=== PATIENT | male | born 1995 | race Caucasian/White ===

== ENCOUNTER 2021-08-05 17:05 | Emergency (ER) | payer MEDICAID, SELFPAY ==
[2021-08-05 17:06] VITALS: BP 138/89; PULSE 79; RESP 16; TEMP 36; O2SAT 97; BMI 20.3
--- NOTE | 2021-08-05 17:59 | CM.ED ---
SOCIAL WORK Referral Source: Triage Nurse Reason for Consult: Substance Abuse-requesting detox Informed by nursing, no detox beds available for patient. Call facilitated to Treatment Navigator for patient. Patient to go to [facility] for detox. Staff talat. Richie Erickson MSW, [employer]
--- NOTE | 2021-08-05 18:48 | EDS_ITS ---
HPI History of Present Illness Chief Complaint: Substance Abuse Narrative Narrative: 25-year-old male with history of Xanax use due to anxiety presenting for detox. He states that he has been on this for very long time he states that he has been prescribed this. He states he normally takes it as scheduled. Recently he overdosed on Xanax and has court appointed detox from benzodiazepines ordered. He arrives to [place] [facility] for this. He is not having any symptoms of withdrawal currently. PFSH PFSH Allergy/AdvReac Type Severity Reaction Status Date / Time iodine Allergy Hives Verified 08/05/21 17:10 codeine AdvReac Vomiting Verified 08/05/21 17:10 ROS ROS ED Constitutional Constitutional ED: Denies chills, fever(s) or subjective Eyes Eyes: Denies blurry vision or diplopia ENT ENT ED: Denies rhinorrhea or sore throat Cardiovascular Cardiovascular: Denies chest pain or palpitations Respiratory/Chest Respiratory/Chest: Denies cough or dyspnea Gastrointestinal Gastrointestinal: Denies abdominal pain, nausea or vomiting Genitourinary Genitourinary ED: Denies dysuria or urinary frequency Musculoskeletal Musculoskeletal: Denies arthralgias or myalgias Integumentary Denies abscess or rash Neurologic Neurologic: Denies headache(s) or weakness Psychiatric Psychiatric: Reports anxiety; Denies suicidal ideation or suicidal thoughts EXAM Physical Exam Const Vital Signs: 08/05/21 17:06 Temperature 96.8 F L Temperature Source Temporal Pulse Rate 79 Respiratory Rate 16 Blood Pressure 138/89 H Blood Pressure Mean 105 Pulse Ox 97 Oxygen Delivery Method Room Air Positive well nourished General Appearance ED: NAD; Negative for pallor HEENT Reports moist mucous membranes atraumatic Eyes PERRL and EOMs intact bilaterally Chest Wall inspection of chest normal and palpation of chest normal Resp normal respiratory effort and clear to auscultation bilaterally Cardio regular rate and regular rhythm Neuro oriented x3 and CN's II-XII intact bilaterally Sensorium / Orientation: alert and oriented to person Psych mental status grossly normal and thought process normal Skin General Skin Exam: Negative for jaundice or pallor MDM MDM MDM Narrative Medical decision making narrative: Patient presenting with court ordered benzodiazepine detox. He was able to speak to his treatment navigator who alerted him that he should be going to [facility]. He was seen by social work and I did confirm this. He does not have any signs of withdrawal. His father will drive him to [facility]. He is discharged in stable condition. Impression: 1. Anxiety 2. History of benzodiazepine abuse Discharge Plan Triage Chief Complaint: Substance Abuse ED Provider: Aryan Gonzalez Dx/Rx/DC Orders Instructions: ED Benzodiazepine Withdrawal Primary Care Provider: Reid Patino,Out of Referrals: Reid Patino,Out of [Primary Care Provider] - Activity Restrictions/Additional Instructions: The treatment navigator states that you are to go to [facility] for court ordere d detox from benzodiazepines. I recommended that she go straight there from [place] ED. Disposition Disposition: Home, Self Care
[2021-08-05 19:05] VITALS: BP 126/72; PULSE 88; RESP 14; TEMP 36.7; O2SAT 96
== END 2021-08-05 19:10 | disposition home or self-care (01) ==
LOC: ED 19:08
PROVIDERS: Emergency Provider Student in an Organized Health Care Education/Training Program
DX: F41.9 Anxiety disorder, unspecified (principal); F13.10 Sedative, hypnotic or anxiolytic abuse, uncomplicated
CPT/HCPCS: 99281

== ENCOUNTER 2022-09-14 20:59 | Emergency (ER) | payer MEDICAID, SELFPAY ==
[2022-09-14 21:00] VITALS: BP 128/86; PULSE 81; RESP 16; TEMP 36.8; O2SAT 99; BMI 20.3
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
--- NOTE | 2022-09-14 21:50 | ED.RN ---
PT LEFT DEPARTMENT. UNWILLING TO STAY
== END 2022-09-14 21:53 | disposition left against medical advice (07) ==
LOC: ED 21:32
PROVIDERS: Emergency Provider Emergency Medicine; Visit Provider Emergency Medicine
DX: F11.20 Opioid dependence, uncomplicated (principal); F13.10 Sedative, hypnotic or anxiolytic abuse, uncomplicated; F17.210 Nicotine dependence, cigarettes, uncomplicated
CPT/HCPCS: 99282

== ENCOUNTER 2022-09-17 18:27 | Inpatient (IN) | payer MEDICAID, SELFPAY ==
[2022-09-17 18:28] VITALS: BP 124/91; PULSE 112; RESP 18; TEMP 36.7; O2SAT 99; BMI 20.3
[2022-09-17 19:52] LABS: Absolute Lymphocyte Count 1.52 X10^3/uL (0.83-4.51); Absolute Neutrophil Count 7.4 X10^3/uL (2.0-7.7); Basophil# 0.04 X10^3/uL; Basophil% 0.4 % (0-1); Eosinophil# 0.04 X10^3/uL; Eosinophils% 0.4 % (0-5); Hematocrit 52.9 % (40-54); Lymphocyte # 1.52 X10^3/ul (0.83-4.51); Lymphocyte % 15.5 % (19-41); Mean Corp Hgb Conc 34.2 g/dL (32-36); Mean Corpuscular Hgb 29.6 pg (27.0-32.0); Mean Corpuscular Volume 86.6 fL (80-94); Mean Platelet Vol. 9.9 fl (6.2-12.0); Monocyte# 0.73 X10^3/uL; Monocyte% 7.4 % (0-10); NRBC Flagged by Analyzer 0 % (0-5); Neutrophil # 7.44 X10^3/uL (2.7-7.7); Neutrophil % 75.8 % (47-70); Platelet Count 449 K/mm3 (150-450); RBC Distribution Width CV 12.4 % (11.6-14.6); RBC Distribution Width SD 39.1 fl (35.1-43.9); Red Blood Count 6.11 M/mm3 (4.6-6.2); White Blood Count 9.8 K/mm3 (4.4-11.0)
[2022-09-17 20:07] LABS: Hemoglobin 18.1 g/dL (13.0-16.5)
[2022-09-17 20:14] LABS: Amphetamine Urine VISTA NEGATIVE (<1000 ng/mL); Barbiturate Urine VISTA NEGATIVE (< 200 ng/mL); Benzodiazepine Urine VISTA NEGATIVE (< 200 ng/mL); Cocaine Urine VISTA NEGATIVE (< 300 ng/mL); Ecstacy Urine VISTA NEGATIVE (< 500 ng/mL); Methadone Urine VISTA NEGATIVE (< 300 ng/mL); PCP Urine VISTA NEGATIVE (< 25 ng/mL); THC Urine VISTA POSITIVE (< 50 ng/mL); Vista UDS pH Range 6
[2022-09-17 20:20] VITALS: BP 136/97; PULSE 94; RESP 18; O2SAT 97
[2022-09-17 20:21] LABS: Anion Gap 5 (5-15); BUN 13 mg/dL (7-18); BUN/Creat Ratio 11.3 RATIO (10-20); Calcium,Total 9.8 mg/dL (8.5-10.1); Chloride 103 mmol/L (98-107); Creatinine, Serum 1.15 mg/dL (0.70-1.30); EST Glomerular Filtration Rate 80 mL/min (>60); Est Glom Filt Rate - Afr Amer 97 mL/min (>60); Estimated Creatinine Clearance 92.03 ml/min; Glucose 108 mg/dL (74-106); Potassium 4.2 mmol/L (3.5-5.1); Sodium Level 135 mmol/L (136-145)
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
--- NOTE | 2022-09-17 21:43 | HP.PCM.HOS_ITS ---
HPI - General General Date of Admission: 09/17/22 Date of Service: 09/17/22 Chief Complaint: opioid detox HPI Narrative MALISSA COBIAN, is a 26 M with a PMH as outlined who presents via the ED on 09/17/2022 with a complaint of opioid withdrawal. He has been using IV fentanyl for about 2 years prior to admission; he says he snorts or smokes it and denies using it IV. He last used it the day before admission. He admitted to tremors and nausea as well as as some abdominal pain. He also takes ativan, and says it is prescribed by his PCP for his anxiety. He denied any fever, chills, cough, chest pain, palpitations, dizziness or any other symptoms. He had previously been in an outpatient opioid withdrawal program and had been on buprenorphine; he however says he had missed his last appointments and was now off buprenorphine. He said he took gabapentin for chronic leg pain. Review of systems was otherwise negative. Vitals in the ED were BP of 130/87, CT of 89 and RR of 20; temp was 97.4F and he was saturating at 100% on room air. CBC showed hb of 18.1, wbc of 9.8 and platelets of 449. Chemistry showed sodium of 135 but was otherwise WNL. Urine tox was positive for cannabinoids. He is being admitted to be managed for acute opioid withdrawal. [facility] Medical History Drug abuse Drug abuse Home Medications gabapentin 100 mg capsule 600 mg PO TID 09/17/22 [History Last Taken Unknown] lorazepam 1 mg tablet 1 mg PO TID 09/17/22 [History Last Taken Unknown] Allergy/AdvReac Type Severity Reaction Status Date / Time iodine Allergy Hives Verified 09/17/22 18:28 codeine AdvReac Vomiting Verified 09/17/22 18:28 Social History Smoking Status: Current every day smoker tobacco type: cigarettes ROS Review of Systems ROS Unobtainable: Denies due to encephalopathy Constitutional Constitutional: Reports fatigue and malaise; Denies anorexia, change in weight, chills, fever(s) or weakness Eyes Eyes: Denies change in vision ENT HEENT: Denies dysphagia, epistaxis, headache(s) or nasal congestion Cardiovascular Cardiovascular: Denies chest pain, dyspnea on exertion, edema, lightheadedness, orthopnea, palpitations, rapid heart rate or syncope Respiratory/Chest Respiratory/Chest: Denies cough, dyspnea, productive cough or shortness of breath at rest Gastrointestinal Gastrointestinal: Reports abdominal pain and nausea; Denies constipation or vomiting Genitourinary Genitourinary: Denies burning urination or dysuria Musculoskeletal Musculoskeletal: Denies arthralgias, back pain or joint pain Neurologic Neurologic: Denies confusion, dizziness, focal weakness, headache(s), seizures or syncope Psychiatric Psychiatric: Denies anxiety Endocrine Endocrinology: Denies change in body appearance Hematologic/Lymphatic Hematologic/Lymphatic: Denies anemia Vital Signs Vital Signs Vital Signs: 09/17/22 18:28 09/17/22 20:20 Temperature 98.1 F Temperature Source Temporal Pulse Rate 112 H 94 Respiratory Rate 18 18 Blood Pressure 124/91 H 136/97 H Blood Pressure Mean 102 110 Pulse Ox 99 97 Oxygen Delivery Method Room Air Room Air Weight Weight: 150 lb Body Mass Index (BMI) 20.3 Physical Exam Const alert and oriented x3 Constitutional Narrative: anxious, asking for pain meds; father was by his bedside General Appearance: cooperative HEENT normocephalic, head/scalp atraumatic, hearing grossly normal bilaterally and moist oral mucous membranes Mouth: oral and palatal mucosa normal Eyes PERRL, EOMs intact bilaterally and conjunctivae normal Neck no lymphadenopathy and supple Resp normal respiratory effort, no retractions, no use of accessory muscles and clear to auscultation bilaterally Cardio regular rate, regular rhythm, S1 normal heart sound, S2 normal heart sound and no murmurs GI normal to inspection, nondistended, normoactive bowel sounds, soft to palpation, non-tender and non-distended Extremity normal to inspection, full ROM and no clubbing, cyanosis or edema Neuro oriented x3, CN's II-XII intact bilaterally, moves all extremities and no focal motor deficits Sensorium / Orientation: awake and alert Motor Exam: strength 5/5 throughout Psych Psych Narrative: anxious looking Results Lab / Micro Data Result Diagrams: 09/17/22 19:25 09/17/22 19:25 Labs: Laboratory Results - last 24 hr 09/17/22 19:17: Urine Opiates Screen NEGATIVE, Urine Methadone Screen NEGATIVE, Ur Barbiturates Screen NEGATIVE, Ur Phencyclidine Scrn NEGATIVE, Ur Amphetamines Screen NEGATIVE, MDMA (Ecstasy) Screen NEGATIVE, U Benzodiazepines Scrn NEGATIVE, Urine Cocaine Screen NEGATIVE, U Cannabinoids Screen POSITIVE H, Ur Drug Screen Comment 09/17/22 19:25: WBC 9.8, RBC 6.11, Hgb 18.1 H*, Hct 52.9, MCV 86.6, MCH 29.6, MCHC 34.2, RDW Std Deviation 39.1, RDW Coeff of Luisito 12.4, Plt Count 449, MPV 9.9, Immature Gran % (Auto) 0.500, Neut % (Auto) 75.8 H, Lymph % (Auto) 15.5 L, Linn % (Auto) 7.4, Eos % (Auto) 0.4, Baso % (Auto) 0.4, Absolute Neuts (auto) 7.4, Absolute Lymphs (auto) 1.52, Nucleated RBC % 0 09/17/22 19:25: Sodium 135 L, Potassium 4.2, Chloride 103, Carbon Dioxide 27.0, Anion Gap 5, BUN 13, Creatinine 1.15, Estim Creat Clear Calc 92.03, Est GFR (MDRD) Af Amer 97, Est GFR (MDRD) Non-Af 80, BUN/Creatinine Ratio 11.3, Glucose 108 H, Calcium 9.8 09/17/22 19:25: Ethyl Alcohol 4.0 Assessment & Plan Assessment/Plan (1) Desire for detoxification: (2) Acute opioid withdrawal: PLAN: Plan #Acute opioid withdrawal * admit to med surg * start on opioid withdrawal protocol with buprenorphine * monitor CINA score * adjunctive meds for symptomatic relief * #Chronic anxiety * on ativan 1mg tid. This is prescribed by his PCP. Doesnt plan on quitting taking hte ativan * will continue * #Chronic LE pain: on gabapentin DVT prophylaxis: low risk, enourage to ambulate Charges/Coding Visit Charges Inpatient E&M: 43891 Init Hosp L3
[2022-09-17 22:18] VITALS: BP 130/87; PULSE 89; RESP 20; TEMP 36.3; O2SAT 100
[2022-09-17 23:15] VITALS: BP 153/85; PULSE 98; RESP 18; TEMP 37.8; O2SAT 98
[2022-09-17 23:18] VITALS: BMI 19.2
[2022-09-17] MEDS: traZODone 100 MG Tablet PO (23:28)
[2022-09-17] MEDS: Methocarbamol 750 MG Tablet 1500 MG PO (23:28)
[2022-09-17] MEDS: Gabapentin 600 MG Tablet PO (23:28)
[2022-09-17] MEDS: cloNIDine HCl 0.1 MG Tablet PO (23:28)
[2022-09-17] MEDS: LORazepam 1 MG Tablet PO (23:28)
[2022-09-17] MEDS: Buprenorphine HCl 2 MG TAB.SUBL SL (23:28)
[2022-09-18] MEDS: Gabapentin 300 MG Capsule PO ×2 (00:56→09:35)
[2022-09-18] MEDS: hydrOXYzine PAM 25 MG Capsule 50 MG PO ×3 (00:56→20:06)
[2022-09-18] MEDS: LORazepam 1 MG Tablet PO ×3 (05:05→21:14)
[2022-09-18] MEDS: Gabapentin 600 MG Tablet PO ×3 (05:05→21:14)
[2022-09-18] MEDS: Buprenorphine HCl 2 MG TAB.SUBL SL ×3 (06:41→22:38)
--- NOTE | 2022-09-18 09:13 | PN.HOSP_ITS ---
Subjective Subjective Follow-up acute opioid withdrawal Objective Data Objective Data Vital Signs: Vital Signs Temp Pulse Resp BP Pulse Ox O2 Del Method 100.0 F H 98 18 153/85 H 98 Room Air 09/17/22 23:15 09/17/22 23:15 09/17/22 23:15 09/17/22 23:15 09/17/22 23:15 09/18/22 04:00 Oxygen Delivery Method Room Air Weight: 64.2 kg Body Mass Index (BMI) 19.2 Intake & Output: Intake and Output for Last 24 Hours 09/16/22 09/17/22 09/18/22 23:59 23:59 23:59 Intake Total 1000 / 1000 Balance 1000 / 1000 Lab / Micro Data Result Diagrams: 09/17/22 19:25 09/17/22 19:25 Labs: Laboratory Results - last 24 hr 09/17/22 19:17: Urine Opiates Screen NEGATIVE, Urine Methadone Screen NEGATIVE, Ur Barbiturates Screen NEGATIVE, Ur Phencyclidine Scrn NEGATIVE, Ur Amphetamines Screen NEGATIVE, MDMA (Ecstasy) Screen NEGATIVE, U Benzodiazepines Scrn NEGATIVE, Urine Cocaine Screen NEGATIVE, U Cannabinoids Screen POSITIVE H, Ur Drug Screen Comment 09/17/22 19:25: WBC 9.8, RBC 6.11, Hgb 18.1 H*, Hct 52.9, MCV 86.6, MCH 29.6, MCHC 34.2, RDW Std Deviation 39.1, RDW Coeff of Luisito 12.4, Plt Count 449, MPV 9.9, Immature Gran % (Auto) 0.500, Neut % (Auto) 75.8 H, Lymph % (Auto) 15.5 L, [place] % (Auto) 7.4, Eos % (Auto) 0.4, Baso % (Auto) 0.4, Absolute Neuts (auto) 7.4, Absolute Lymphs (auto) 1.52, Nucleated RBC % 0 09/17/22 19:25: Sodium 135 L, Potassium 4.2, Chloride 103, Carbon Dioxide 27.0, Anion Gap 5, BUN 13, Creatinine 1.15, Estim Creat Clear Calc 92.03, Est GFR (MDRD) Af Amer 97, Est GFR (MDRD) Non-Af 80, BUN/Creatinine Ratio 11.3, Glucose 108 H, Calcium 9.8 09/17/22 19:25: Ethyl Alcohol 4.0 Physical Exam Narrative GENERAL: cooperative HEENT: Atraumatic; normocephalic EYES; Anicteric, Normal Conjunctiva NECK; supple, normal thyroid, RESPIRATORY: Diminished to auscultation CARDIOVASCULAR: Regular S1 S2, GI: soft, normoactive bowel sounds, : No Renal angle tenderness; EXTREMITIES: No edema, no clubbing, MUSCULOSKELETAL: no muscle wasting NEURO: Awake; no lateralizing signs. SKIN: No Rash PSYCH; Flat affect Assessment & Plan Assessment/Plan (1) Acute opioid withdrawal: PLAN: Plan Patient is a 26-year-old gentleman with history of polysubstance dependence presented with acute opioid withdrawal 1. Acute opiate withdrawal ? Patient has been admitted to regular nursing floor managed with buprenorphine in addition to the use of adjuvant medications for his symptoms 2. Polysubstance abuse ? Counseled on cessation 3. Chronic anxiety disorder ? Patient is on Ativan apparently prescribed by primary care physician continued per patient's request 4. Tobacco dependence - Counseled on cessation, offered nicotine patch for tobacco cravings 5. Chronic lower extremity pain ? Patient is on gabapentin did continue home dose 6. DVT prophylaxis ? Low risk did encourage early ambulation Time spent in the patient's overall evaluation,decision-making process, review of diagnostic data, adjustment of management, discussion with other providers, nursing nursing and ancillary staff involved in patient's care documentation, 37 Minutes Charges/Coding Visit Charges Inpatient E&M: 18034 Subs Hosp L2
[2022-09-18 09:25] VITALS: BP 116/67; PULSE 74; RESP 18; TEMP 36.6; O2SAT 98
[2022-09-18] MEDS: cloNIDine HCl 0.1 MG Tablet PO ×2 (09:35→20:06)
[2022-09-18] MEDS: Methocarbamol 750 MG Tablet 1500 MG PO ×3 (09:35→22:38)
[2022-09-18 14:01] VITALS: BP 102/62; PULSE 65; RESP 18; TEMP 36.8; O2SAT 97
--- NOTE | 2022-09-18 15:44 | CHAPLAIN ---
Type of Pastoral Visit _x__ Initial Visit ___ Follow-up Visit ___ On-call Visit ___ General Patient Visit ___ Spiritual Assessment ___ Family Conference ___ Bereavement ___ Rapid Response ___ Code Blue ___ Other (describe below) Pastoral Care Referral From _x__ Patient ___ Family ___ Nurse ___ Physician ___ Medical Sales Associate ___ Marriage And Family Teacher ___ Other (describe below) Sacrament/Intervention _x__ Active listening ___ Anointing ___ Nondenominational ___ Bereavement ___ Communion _x__ Lisa exploration ___ _x__ Life review _x__ Prayer ___ Reconciliation ___ Sacrament of Sick _x__ Supportive presence ___ Wedding ___ Other (describe below) Pastoral Comments patient door open and walking inside room; pt welcomes this chief ultrasound technologist to sit with him; pt gives life review and speaks of his desire for more lisa; pt lists many positive things in his life including family and work; pt states that last few months I got involved with bad people and I want to get out of that; pt has many tattoos and gives reason for those; pt states he enjoys playing his guitar and wishes he could have it now to relax him; pt is tearful when he talks about his little son; pt welcomes prayer; pt asks for a visit tomorrow also
[2022-09-18 20:13] VITALS: BP 107/70; PULSE 89; RESP 18; TEMP 36.6; O2SAT 99
[2022-09-18] MEDS: traZODone 100 MG Tablet PO (21:14)
[2022-09-19 04:28] VITALS: BP 106/70; PULSE 54; RESP 18; TEMP 36.5; O2SAT 100
[2022-09-19] MEDS: cloNIDine HCl 0.1 MG Tablet PO ×2 (04:30→19:41)
[2022-09-19] MEDS: hydrOXYzine PAM 25 MG Capsule 50 MG PO ×2 (04:31→15:33)
[2022-09-19] MEDS: LORazepam 1 MG Tablet PO ×3 (05:02→21:48)
[2022-09-19] MEDS: Gabapentin 600 MG Tablet PO ×3 (05:02→21:48)
[2022-09-19] MEDS: Buprenorphine HCl 2 MG TAB.SUBL SL ×3 (06:47→23:38)
--- NOTE | 2022-09-19 08:55 | PCM.PN.HOSP ---
Subjective Subjective Follow-up acute opioid withdrawal Seen complaining of bilateral lower extremity leg pain. Also worried about drop in his Subutex dose did reassure patient the need to stay on the current regimen Objective Data Objective Data Vital Signs: Vital Signs Temp Pulse Resp BP Pulse Ox O2 Del Method 97.7 F L 54 L 18 106/70 100 Room Air 09/19/22 04:28 09/19/22 04:28 09/19/22 04:28 09/19/22 04:28 09/19/22 04:28 09/19/22 04:28 Oxygen Delivery Method Room Air Weight: 64.2 kg Body Mass Index (BMI) 19.2 Intake & Output: Intake and Output for Last 24 Hours 09/17/22 09/18/22 09/19/22 23:59 23:59 23:59 Intake Total 1000 / 1999 1500 / 1500 Balance 1000 / 1999 1500 / 1500 Lab / Micro Data Result Diagrams: 09/17/22 19:25 09/17/22 19:25 Physical Exam Narrative GENERAL: cooperative HEENT: Atraumatic; normocephalic EYES; Anicteric, Normal Conjunctiva NECK; supple, normal thyroid, RESPIRATORY: Diminished to auscultation CARDIOVASCULAR: Regular S1 S2, GI: soft, normoactive bowel sounds, : No Renal angle tenderness; EXTREMITIES: No edema, no clubbing, MUSCULOSKELETAL: no muscle wasting NEURO: Awake; no lateralizing signs. SKIN: No Rash PSYCH; Flat affect Assessment & Plan Assessment/Plan (1) Acute opioid withdrawal: PLAN: Plan Patient is a 26-year-old gentleman with history of polysubstance dependence presented with acute opioid withdrawal 1. Acute opiate withdrawal ? Patient has been admitted to regular nursing floor managed with buprenorphine in addition to the use of adjuvant medications for his symptoms ? 09/19/2022; Seen complaining of bilateral lower extremity leg pain. Also worried about drop in his Subutex dose did reassure patient the need to stay on the current regimen 2. Polysubstance abuse ? Counseled on cessation 3. Chronic anxiety disorder ? Patient is on Ativan apparently prescribed by primary care physician continued per patient's request 4. Tobacco dependence - Counseled on cessation, offered nicotine patch for tobacco cravings 5. Chronic lower extremity pain ? Patient is on gabapentin did continue home dose 6. DVT prophylaxis ? Low risk did encourage early ambulation Time spent in the patient's overall evaluation,decision-making process, review of diagnostic data, adjustment of management, discussion with other providers, nursing nursing and ancillary staff involved in patient's care documentation, 35 Minutes Charges/Coding Visit Charges Inpatient E&M: 98990 Subs Hosp L2
[2022-09-19 09:25] VITALS: BP 110/56; PULSE 86; RESP 18; TEMP 36.4; O2SAT 98
[2022-09-19] MEDS: Methocarbamol 750 MG Tablet 1500 MG PO ×3 (09:30→21:56)
[2022-09-19] MEDS: FLU VACC QS2022-23(6MOS UP)/PF 60 MCG/0.5 ML SYRINGE IM (09:31)
--- NOTE | 2022-09-19 16:35 | CHAPLAIN ---
Type of Pastoral Visit ___ Initial Visit _x__ Follow-up Visit ___ On-call Visit ___ General Patient Visit ___ Spiritual Assessment ___ Family Conference ___ Bereavement ___ Rapid Response ___ Code Blue ___ Other (describe below) Pastoral Care Referral From _x__ Patient ___ Family ___ Nurse ___ Physician ___ Trash Hauler ___ Tool Mechanic ___ Other (describe below) Sacrament/Intervention _x__ Active listening ___ Anointing ___ Nondenominational ___ Bereavement ___ Communion _x__ Lisa exploration ___ _x__ Life review _x__ Prayer ___ Reconciliation ___ Sacrament of Sick _x__ Supportive presence ___ Wedding ___ Other (describe below) Pastoral Comments patient requested this follow up visit to talk and have presence for support; pt talks about his life, feelings, and desire to start a better life; pt asks for a Bible; discussion on lisa and starting new life; prayer and presence
[2022-09-19 19:33] VITALS: BP 120/67; PULSE 86; RESP 16; TEMP 37; O2SAT 98
[2022-09-19 21:44] VITALS: BP 119/64; PULSE 77; RESP 16; TEMP 36.8; O2SAT 98
[2022-09-19] MEDS: traZODone 100 MG Tablet PO (23:37)
[2022-09-20 05:43] VITALS: BP 129/75; PULSE 82; RESP 18; TEMP 36.5; O2SAT 100
[2022-09-20] MEDS: LORazepam 1 MG Tablet PO ×2 (05:44→14:22)
[2022-09-20] MEDS: Gabapentin 600 MG Tablet PO ×2 (05:44→14:22)
[2022-09-20] MEDS: Methocarbamol 750 MG Tablet 1500 MG PO (05:49)
[2022-09-20] MEDS: cloNIDine HCl 0.1 MG Tablet PO (07:56)
[2022-09-20] MEDS: hydrOXYzine PAM 25 MG Capsule 50 MG PO (07:56)
--- NOTE | 2022-09-20 08:57 | PCM.PN.HOSP ---
Subjective Subjective Follow-up acute opioid withdrawal Patient seen, still complaining of leg pain. Objective Data Objective Data Vital Signs: Vital Signs Temp Pulse Resp BP Pulse Ox O2 Del Method 97.7 F L 82 18 129/75 H 100 Room Air 09/20/22 05:43 09/20/22 05:43 09/20/22 05:43 09/20/22 05:43 09/20/22 05:43 09/20/22 05:43 Oxygen Delivery Method Room Air Weight: 64.2 kg Body Mass Index (BMI) 19.2 Intake & Output: Intake and Output for Last 24 Hours 09/18/22 09/19/22 09/20/22 23:59 23:59 23:59 Intake Total 1000 / 2000 1500 / 1500 500 / 500 Balance 1000 / 2000 1500 / 1500 500 / 500 Lab / Micro Data Result Diagrams: 09/17/22 19:25 09/17/22 19:25 Physical Exam Narrative GENERAL: cooperative HEENT: Atraumatic; normocephalic EYES; Anicteric, Normal Conjunctiva NECK; supple, normal thyroid, RESPIRATORY: Diminished to auscultation CARDIOVASCULAR: Regular S1 S2, GI: soft, normoactive bowel sounds, : No Renal angle tenderness; EXTREMITIES: No edema, no clubbing, MUSCULOSKELETAL: no muscle wasting NEURO: Awake; no lateralizing signs. SKIN: No Rash PSYCH; Flat affect Assessment & Plan Assessment/Plan (1) Acute opioid withdrawal: PLAN: Plan Patient is a 26-year-old gentleman with history of polysubstance dependence presented with acute opioid withdrawal 1. Acute opiate withdrawal ? Patient has been admitted to regular nursing floor managed with buprenorphine in addition to the use of adjuvant medications for his symptoms ? 09/19/2022; Seen complaining of bilateral lower extremity leg pain. Also worried about drop in his Subutex dose did reassure patient the need to stay on the current regimen 2. Polysubstance abuse ? Counseled on cessation 3. Chronic anxiety disorder ? Patient is on Ativan apparently prescribed by primary care physician continued per patient's request 4. Tobacco dependence - Counseled on cessation, offered nicotine patch for tobacco cravings 5. Chronic lower extremity pain ? Patient is on gabapentin did continue home dose 6. DVT prophylaxis ? Low risk did encourage early ambulation Time spent in the patient's overall evaluation,decision-making process, review of diagnostic data, adjustment of management, discussion with other providers, nursing nursing and ancillary staff involved in patient's care documentation, 30 Minutes Charges/Coding Visit Charges Inpatient E&M: 86827 Subs Hosp L1
[2022-09-20 09:20] VITALS: BP 113/57; PULSE 70; RESP 18; TEMP 36.9; O2SAT 100
[2022-09-20] MEDS: Gabapentin 300 MG Capsule PO (10:50)
[2022-09-20] MEDS: Buprenorphine HCl 2 MG TAB.SUBL SL (11:37)
[2022-09-20 14:29] VITALS: BP 106/62; PULSE 70; RESP 18; TEMP 36.8; O2SAT 100
--- NOTE | 2022-09-20 16:00 | DS.PCM_ITS ---
Providers Date of Admission: 09/17/22 Primary Care Physician: Rajwinder Primary Care Phys Reason For Visit: ACUTE OPIOID WITHDRAWAL Diagnosis Discharge Diagnosis (1) Acute opioid withdrawal: Status: Acute Code(s): F11.93 - Opioid use, unspecified with withdrawal Plan Patient is a 26-year-old gentleman with history of polysubstance dependence presented with acute opioid withdrawal 1. Acute opiate withdrawal ? Patient has been admitted to regular nursing floor managed with buprenorphine in addition to the use of adjuvant medications for his symptoms ? 09/19/2022; Seen complaining of bilateral lower extremity leg pain. Also wor ried about drop in his Subutex dose did reassure patient the need to stay on the current regimen 2. Polysubstance abuse ? Counseled on cessation 3. Chronic anxiety disorder ? Patient is on Ativan apparently prescribed by primary care physician continued per patient's request 4. Tobacco dependence - Counseled on cessation, offered nicotine patch for tobacco cravings 5. Chronic lower extremity pain ? Patient is on gabapentin did continue home dose 6. DVT prophylaxis ? Low risk did encourage early ambulation Medications at Discharge Home Medications gabapentin 100 mg capsule 600 mg PO TID nerve pain 09/17/22 lorazepam 1 mg tablet 1 mg PO TID anxiety 09/17/22 Hospital Course Summary of Care Provided Minutes Spent on Discharge: 35 Physical Exam Narrative GENERAL: cooperative HEENT: Atraumatic; normocephalic EYES; Anicteric, Normal Conjunctiva NECK; supple, normal thyroid, RESPIRATORY: Diminished to auscultation CARDIOVASCULAR: Regular S1 S2, GI: soft, normoactive bowel sounds, : No Renal angle tenderness; EXTREMITIES: No edema, no clubbing, MUSCULOSKELETAL: no muscle wasting NEURO: Awake; no lateralizing signs. SKIN: No Rash PSYCH; Flat affect Weight / BMI Weight Weight: 64.2 kg Body Mass Index (BMI) 19.2 ABG / Lab / Microbiology Data Result Diagrams: 09/17/22 19:25 09/17/22 19:25 D/C Instructions Discharge Diet: No restrictions Discharge Activity: Return to Normal Activity Call your doctor if you observe: Fever of 101 or Higher, Shortness of breath, Fainting spells and Chest pain Meaningful Use Info Meaningful Use Diagnoses (Choose all that apply): None applicable Discharge Plan Admission Admit Date/Time: 09/17/22 21:56 Attending Provider: Phoenix Delgado Primary Care Provider: Care Physician,No Primary Consulting Providers: Ashanti Malhotra Discharge Orders/Prescriptions Prescriptions: Continued gabapentin 100 mg capsule 600 mg PO TID lorazepam 1 mg tablet 1 mg PO TID Label Comments: Take 1 tablet by mouth single dose Referrals / Follow Up: Care Physician,No Primary [Primary Care Provider] - Within 1 Week Disposition Disposition (needs filled in before D/C Order can be placed): Home, Self Care Charges/Coding Visit Charges Inpatient E&M: 23350 Disch Hosp >30min
== END 2022-09-20 16:13 | disposition home or self-care (01) | DRG 773 ==
LOC: ED 21:36 → MS3 22:13
PROVIDERS: Admitting Provider Student in an Organized Health Care Education/Training Program; Emergency Provider Emergency Medicine; Visit Provider Internal Medicine
DX: F11.23 Opioid dependence with withdrawal (principal); F12.10 Cannabis abuse, uncomplicated; F13.10 Sedative, hypnotic or anxiolytic abuse, uncomplicated; F17.210 Nicotine dependence, cigarettes, uncomplicated; F41.9 Anxiety disorder, unspecified; M79.604 Pain in right leg; M79.605 Pain in left leg; G89.29 Other chronic pain; Z79.899 Other long term (current) drug therapy; Z23 Encounter for immunization
CPT/HCPCS: 80048; 80307; 82077; 85025; 99282; 99283; 90686

== ENCOUNTER 2022-10-19 21:00 | Inpatient (IN) | payer MEDICAID, SELFPAY ==
[2022-10-19 21:01] VITALS: BP 136/100; PULSE 147; RESP 16; TEMP 37.1; O2SAT 96; BMI 20.3
[2022-10-19 21:29] LABS: Absolute Lymphocyte Count 0.95 X10^3/uL (0.83-4.51); Basophil# 0.04 X10^3/uL; Basophil% 0.3 % (0-1); Eosinophil# 0.03 X10^3/uL; Eosinophils% 0.3 % (0-5); Hematocrit 48.6 % (40-54); Hemoglobin 16.7 g/dL (13.0-16.5); Lymphocyte # 0.95 X10^3/ul (0.83-4.51); Lymphocyte % 8.1 % (19-41); Mean Corp Hgb Conc 34.4 g/dL (32-36); Mean Corpuscular Hgb 29.7 pg (27.0-32.0); Mean Corpuscular Volume 86.5 fL (80-94); Mean Platelet Vol. 10.1 fl (6.2-12.0); Monocyte# 0.69 X10^3/uL; Monocyte% 5.9 % (0-10); NRBC Flagged by Analyzer 0 % (0-5); Neutrophil # 10.01 X10^3/uL (2.7-7.7); Neutrophil % 85.1 % (47-70); Platelet Count 419 K/mm3 (150-450); RBC Distribution Width CV 12.3 % (11.6-14.6); RBC Distribution Width SD 38.7 fl (35.1-43.9); Red Blood Count 5.62 M/mm3 (4.6-6.2); White Blood Count 11.8 K/mm3 (4.4-11.0)
[2022-10-19 21:44] LABS: Alcohol, Blood (Medical)-Serum < 3.0 mg/dL
[2022-10-19 21:45] LABS: Anion Gap 6 (5-15); BUN 7 mg/dL (7-18); BUN/Creat Ratio 6.5 RATIO (10-20); Calcium,Total 9.4 mg/dL (8.5-10.1); Chloride 108 mmol/L (98-107); Creatinine, Serum 1.08 mg/dL (0.70-1.30); EST Glomerular Filtration Rate 86 mL/min (>60); Est Glom Filt Rate - Afr Amer 104 mL/min (>60); Estimated Creatinine Clearance 97.12 ml/min; Glucose 106 mg/dL (74-106); Potassium 3.9 mmol/L (3.5-5.1); Sodium Level 140 mmol/L (136-145)
[2022-10-19 21:49] LABS: Amphetamine Urine VISTA NEGATIVE (<1000 ng/mL); Barbiturate Urine VISTA POSITIVE (< 200 ng/mL); Benzodiazepine Urine VISTA POSITIVE (< 200 ng/mL); Cocaine Urine VISTA POSITIVE (< 300 ng/mL); Ecstacy Urine VISTA NEGATIVE (< 500 ng/mL); Methadone Urine VISTA NEGATIVE (< 300 ng/mL); PCP Urine VISTA NEGATIVE (< 25 ng/mL); THC Urine VISTA POSITIVE (< 50 ng/mL); Vista UDS pH Range 7
--- NOTE | 2022-10-19 21:49 | EX.ED.SAOD ---
HPI History of Present Illness Chief Complaint: Substance Abuse Narrative Narrative: 27-year-old male presenting for detox. He states he uses fentanyl and benzos. States last use was last evening. Patient states he is feeling dope sick. He states he is never detoxed from benzodiazepines before [facility] Medical History Anxiety Drug abuse Drug abuse Smoker Home Medications gabapentin 100 mg capsule 600 mg PO TID nerve pain 09/17/22 [History Last Taken 09/15/22] lorazepam 1 mg tablet 1 mg PO TID anxiety 09/17/22 [History Last Taken 09/15/22] Allergy/AdvReac Type Severity Reaction Status Date / Time iodine Allergy Hives Verified 09/17/22 18:28 codeine AdvReac Vomiting Verified 09/17/22 18:28 Social History Smoking Status: Current every day smoker tobacco type: cigarettes EXAM Physical Exam Const Vital Signs: 10/19/22 21:01 Temperature 98.7 F Temperature Source Temporal Pulse Rate 147 H Respiratory Rate 16 Blood Pressure 136/100 H Blood Pressure Mean 112 Pulse Ox 96 Oxygen Delivery Method Room Air MDM MDM MDM Narrative Medical decision making narrative: Patient presenting for opioid detox. He is also using benzos. Patient states last use was yesterday for both. Patient tachycardic on arrival. He states he feels dope sick. Admission lab work to be obtained. CBC to assess white blood cell count, hemoglobin, differential. This is essentially unremarkable. BMP to assess renal function electrolytes. This is also unremarkable. EtOH negative. Urine drug screen positive for cannabinoids, cocaine, benzodiazepines, barbiturates. Negative for opioids. Patient admits to fentanyl use however. Patient was given Toradol IM for pain and Zofran. Patient discussed with hospitalist for admission. Impression: 1. Acute opioid withdrawal 2. Benzodiazepine abuse 3. Cocaine abuse 4. Barbiturate abuse Lab Data Attestation: I reviewed the patient's lab results. Labs: Laboratory Results - last 24 hr 10/19/22 10/19/22 10/19/22 21:15 21:15 21:15 WBC 11.8 H RBC 5.62 Hgb 16.7 H Hct 48.6 MCV 86.5 MCH 29.7 MCHC 34.4 RDW Std Deviation 38.7 RDW Coeff of Luisito 12.3 Plt Count 419 MPV 10.1 Immature Gran % (Auto) 0.300 Neut % (Auto) 85.1 H Lymph % (Auto) 8.1 L Jennings % (Auto) 5.9 Eos % (Auto) 0.3 Baso % (Auto) 0.3 Absolute Neuts (auto) 10.0 H Absolute Lymphs (auto) 0.95 Nucleated RBC % 0 Sodium 140 Potassium 3.9 Chloride 108 H Carbon Dioxide 26.0 Anion Gap 6 BUN 7 Creatinine 1.08 Estim Creat Clear Calc 97.12 Est GFR (MDRD) Af Amer 104 Est GFR (MDRD) Non-Af 86 BUN/Creatinine Ratio 6.5 L Glucose 106 Calcium 9.4 Urine Opiates Screen Urine Methadone Screen Ur Barbiturates Screen Ur Phencyclidine Scrn Ur Amphetamines Screen MDMA (Ecstasy) Screen U Benzodiazepines Scrn Urine Cocaine Screen U Cannabinoids Screen Ur Drug Screen Comment Ethyl Alcohol < 3.0 10/19/22 21:20 WBC RBC Hgb Hct MCV MCH MCHC RDW Std Deviation RDW Coeff of Luisito Plt Count MPV Immature Gran % (Auto) Neut % (Auto) Lymph % (Auto) Jennings % (Auto) Eos % (Auto) Baso % (Auto) Absolute Neuts (auto) Absolute Lymphs (auto) Nucleated RBC % Sodium Potassium Chloride Carbon Dioxide Anion Gap BUN Creatinine Estim Creat Clear Calc Est GFR (MDRD) Af Amer Est GFR (MDRD) Non-Af BUN/Creatinine Ratio Glucose Calcium Urine Opiates Screen NEGATIVE Urine Methadone Screen NEGATIVE Ur Barbiturates Screen POSITIVE H Ur Phencyclidine Scrn NEGATIVE Ur Amphetamines Screen NEGATIVE MDMA (Ecstasy) Screen NEGATIVE U Benzodiazepines Scrn POSITIVE H Urine Cocaine Screen POSITIVE H U Cannabinoids Screen POSITIVE H Ur Drug Screen Comment Ethyl Alcohol Discharge Plan Triage Chief Complaint: Substance Abuse ED Provider: Aryan Gonzalez Dx/Rx/DC Orders Prescriptions: No Action gabapentin 100 mg capsule 600 mg PO TID lorazepam 1 mg tablet 1 mg PO TID Label Comments: Take 1 tablet by mouth single dose Primary Care Provider: NOT,DEFINED Referrals: NOT,DEFINED [Primary Care Provider] -
--- NOTE | 2022-10-19 22:47 | HP.PCM.HOS_ITS ---
HPI - General General Date of Admission: 10/19/22 Date of Service: 10/19/22 Chief Complaint: Desire for detoxification HPI Narrative MALISSA COBIAN, is a 27 M with a significant history of chronic leg pain on gabapentin; anxiety disorder on Ativan; and polysubstance abuse who presents emergency department for help with detoxification. Patient's drug of choice is fentanyl. He uses about a gram of fentanyl every day. Last time he used was a day before presentation. He snorts and smokes fentanyl. He reports withdrawal symptoms; increased anxiety; increased bilateral leg pain and increased restlessness. Also occasionally he uses cocaine. Further he reports that a couple of days he used methamphetamine. Reportedly he has used methamphetamine only 2 times in his life; and that was all a couple of days before presentation. [facility] Medical History Anxiety Drug abuse Drug abuse Smoker Home Medications gabapentin 100 mg capsule 600 mg PO TID nerve pain 09/17/22 [History Last Taken 09/15/22] lorazepam 1 mg tablet 1 mg PO TID anxiety 09/17/22 [History Last Taken 09/15/22] Allergy/AdvReac Type Severity Reaction Status Date / Time iodine Allergy Hives Verified 09/17/22 18:28 codeine AdvReac Vomiting Verified 09/17/22 18:28 Family History Other Cancer Heart disease Surgical History History of surgery on lower extremity Social History Smoking Status: Heavy Smoker (>10/day) ROS ROS Narrative Pertinent positives and pertinent negatives as noted in HPI. All other systems were reviewed and are negative Vital Signs Vital Signs Vital Signs: 10/19/22 21:01 Temperature 98.7 F Temperature Source Temporal Pulse Rate 147 H Respiratory Rate 16 Blood Pressure 136/100 H Blood Pressure Mean 112 Pulse Ox 96 Oxygen Delivery Method Room Air Weight Weight: 68.039 kg Body Mass Index (BMI) 20.3 Physical Exam Narrative Physical exam: General: Well-nourished, well-developed. Head: Normocephalic, atraumatic, no tenderness Eyes: Vision is grossly intact. EOMI EN: Poor dentition, no trauma, moist mucous membranes, no rhinorrhea Neck: Nontender, No thyromegaly. CVS: Regular rate and rhythm. S1-S2 present. No murmur, gallop or rub. Respiratory : clear to auscultation bilaterally, chest wall nontender, no wheezing Abdomen: Soft, nontender, nondistended, normal bowel sounds, no masses : Deferred Back: Nontender, no CVA tenderness, no midline spinal tenderness, deformities, step-offs Extremities: Nontender full range of motion, no trauma Skin: Normal color, no trauma, abrasions Neuro: Alert, oriented, cranial nerves II through XII grossly intact. Psychiatry: Normal mood. Normal affect. Not depressed. Not anxious. Results Lab / Micro Data Result Diagrams: 10/19/22 21:15 10/19/22 21:15 Labs: Laboratory Results - last 24 hr 10/19/22 21:15: WBC 11.8 H, RBC 5.62, Hgb 16.7 H, Hct 48.6, MCV 86.5, MCH 29.7, MCHC 34.4, RDW Std Deviation 38.7, RDW Coeff of Luisito 12.3, Plt Count 419, MPV 10.1, Immature Gran % (Auto) 0.300, Neut % (Auto) 85.1 H, Lymph % (Auto) 8.1 L, Travis % (Auto) 5.9, Eos % (Auto) 0.3, Baso % (Auto) 0.3, Absolute Neuts (auto) 10.0 H, Absolute Lymphs (auto) 0.95, Nucleated RBC % 0 10/19/22 21:15: Sodium 140, Potassium 3.9, Chloride 108 H, Carbon Dioxide 26.0, Anion Gap 6, BUN 7, Creatinine 1.08, Estim Creat Clear Calc 97.12, Est GFR (MDRD) Af Amer 104, Est GFR (MDRD) Non-Af 86, BUN/Creatinine Ratio 6.5 L, Glucose 106, Calcium 9.4 10/19/22 21:15: Ethyl Alcohol < 3.0 10/19/22 21:20: Urine Opiates Screen NEGATIVE, Urine Methadone Screen NEGATIVE, Ur Barbiturates Screen POSITIVE H, Ur Phencyclidine Scrn NEGATIVE, Ur Amphetamines Screen NEGATIVE, MDMA (Ecstasy) Screen NEGATIVE, U Benzodiazepines Scrn POSITIVE H, Urine Cocaine Screen POSITIVE H, U Cannabinoids Screen POSITIVE H, Ur Drug Screen Comment Assessment & Plan Assessment/Plan (1) Fentanyl dependence: (2) Desire for detoxification: PLAN: Plan Opioid dependence and withdrawal With tachycardia and elevated blood pressures on presentation. Routine vitals ordered. Toxicology is positive for barbiturates, benzo, cocaine and cannabinoids. Patient be started on Subutex and other adjunctive medications: dicyclomine as needed; Vistaril as needed; methocarbamol as needed; clonidine as needed; Imodium as needed; trazodone as needed and Zofran as needed. Monitor COWS and CINA score Erythrocytosis Hemoglobin of 16.7. His hemoglobin on 09/17/2022 was 18.1. Improved Tobacco abuse Counseled Nicotine patch prescribed. Chronic pain Worsening Gabapentin continued Anxiety disorder Worsening Schedule Ativan continued. DVT prophylaxis Low risk Encourage to ambulate Charges/Coding Visit Charges Inpatient E&M: 95360 Init Hosp L2
[2022-10-19] MEDS: Ketorolac 15 MG/ML Vial IM (22:55)
[2022-10-19] MEDS: Ondansetron ODT 4 MG Tablet PO (22:55)
[2022-10-19 23:00] VITALS: BP 141/82; PULSE 110; RESP 18; TEMP 36.8; O2SAT 98
[2022-10-19 23:19] VITALS: BMI 19.8
[2022-10-19 23:28] VITALS: BP 132/77; PULSE 85; RESP 14; TEMP 36.6; O2SAT 96
[2022-10-20] MEDS: Buprenorphine HCl 2 MG TAB.SUBL SL ×4 (00:46→21:52)
[2022-10-20] MEDS: hydrOXYzine PAM 25 MG Capsule 50 MG PO ×2 (00:57→18:46)
[2022-10-20] MEDS: traZODone 100 MG Tablet PO ×2 (00:57→21:52)
[2022-10-20] MEDS: Methocarbamol 750 MG Tablet 1500 MG PO ×3 (03:15→18:47)
[2022-10-20] MEDS: LORazepam 1 MG Tablet PO ×3 (05:07→21:52)
[2022-10-20] MEDS: Gabapentin 100 MG Capsule 600 MG PO ×3 (05:08→21:53)
--- NOTE | 2022-10-20 07:43 | PN.HOSP_ITS ---
Reason for Visit Reason for Visit: Diagnoses Opioid dependence, uncomplicated (10/19/22) Subjective Subjective No issues overnight, Cina score of 10 Objective Data Objective Data Vital Signs: Vital Signs Temp Pulse Resp BP Pulse Ox O2 Del Method 97.8 F 85 14 132/77 H 96 Room Air 10/19/22 23:28 10/19/22 23:28 10/19/22 23:28 10/19/22 23:28 10/19/22 23:28 10/19/22 23:28 Oxygen Delivery Method Room Air Weight: 146 lb Body Mass Index (BMI) 19.8 Lab / Micro Data Result Diagrams: 10/19/22 21:15 10/19/22 21:15 Labs: Laboratory Results - last 24 hr 10/19/22 21:15: WBC 11.8 H, RBC 5.62, Hgb 16.7 H, Hct 48.6, MCV 86.5, MCH 29.7, MCHC 34.4, RDW Std Deviation 38.7, RDW Coeff of Luisito 12.3, Plt Count 419, MPV 10.1, Immature Gran % (Auto) 0.300, Neut % (Auto) 85.1 H, Lymph % (Auto) 8.1 L, [place] % (Auto) 5.9, Eos % (Auto) 0.3, Baso % (Auto) 0.3, Absolute Neuts (auto) 10.0 H, Absolute Lymphs (auto) 0.95, Nucleated RBC % 0 10/19/22 21:15: Sodium 140, Potassium 3.9, Chloride 108 H, Carbon Dioxide 26.0, Anion Gap 6, BUN 7, Creatinine 1.08, Estim Creat Clear Calc 97.12, Est GFR (MDRD) Af Amer 104, Est GFR (MDRD) Non-Af 86, BUN/Creatinine Ratio 6.5 L, Glucose 106, Calcium 9.4 10/19/22 21:15: Ethyl Alcohol < 3.0 10/19/22 21:20: Urine Opiates Screen NEGATIVE, Urine Methadone Screen NEGATIVE, Ur Barbiturates Screen POSITIVE H, Ur Phencyclidine Scrn NEGATIVE, Ur Amphetamin es Screen NEGATIVE, MDMA (Ecstasy) Screen NEGATIVE, U Benzodiazepines Scrn POSITIVE H, Urine Cocaine Screen POSITIVE H, U Cannabinoids Screen POSITIVE H, Ur Drug Screen Comment Physical Exam Narrative General: Alert, Oriented x3, Cooperative, No apparent distress HEENT: Atraumatic, PERRLA, EOMI, Normocephalic Oral: Moist Mucosa Neck: Supple, No JVD Lungs: Clear to auscultation, Normal air movement, No rhonchi, No wheeze, No rales Cardiovascular: Regular rate, Regular Rhythm, Normal S1, Normal S2, No murmurs Abdomen: Soft, Non Tender, Non-Distended, No Hepato-splenomegaly Extremities: No edema, Capillary Refill Less than 3 Seconds Skin: No rashes, No breakdown Musculoskeletal: No Tenderness to Palpation of Joints or Extremities Neurological: Cranial nerves II-XII grossly intact, Motor Exam 5/5 strength throughout, Sensory exam intact to light touch and pain Psych/Mental Status: Flat affect, Appropriate Assessment & Plan Assessment/Plan (1) Fentanyl dependence: (2) Desire for detoxification: PLAN: Plan 1. Acute opiate withdrawal/tobacco abuse/chronic pain/anxiety ? Continue with the opiate withdrawal protocol ? We will have him follow-up with 180 to discuss discharge planning ? Continue with his gabapentin for his chronic pain ? Counseled on cessation of his tobacco abuse ? Continue with Ativan, may benefit from an antidepressant 2. Erythrocytosis ? Hemoglobin in September of this year was 18.1 down to 16.7 on this admission ? This could partly be due to smoking DVT: Ambulation Charges/Coding Visit Charges Inpatient E&M: 89984 Subs Hosp L2
[2022-10-20 08:00] VITALS: BP 119/62; PULSE 64; RESP 18; TEMP 36.3; O2SAT 96
[2022-10-20 08:21] VITALS: O2SAT 95
[2022-10-20] MEDS: DULoxetine Hcl 30 MG Capsule PO (10:20)
[2022-10-20] MEDS: cloNIDine HCl 0.1 MG Tablet PO ×2 (10:20→19:58)
[2022-10-20] MEDS: Ketorolac 15 MG/ML Vial IM ×2 (13:50→19:58)
[2022-10-20 13:54] VITALS: BP 109/69; PULSE 56; RESP 16; TEMP 36.7; O2SAT 96
--- NOTE | 2022-10-20 15:15 | CHAPLAIN ---
Type of Pastoral Visit _x__ Initial Visit ___ Follow-up Visit ___ On-call Visit ___ General Patient Visit ___ Spiritual Assessment ___ Family Conference ___ Bereavement ___ Rapid Response ___ Code Blue ___ Other (describe below) Pastoral Care Referral From _x__ Patient ___ Family ___ Nurse ___ Physician ___ Superintendent Quarry ___ Stone Finisher ___ Other (describe below) Sacrament/Intervention ___ Active listening ___ Anointing ___ Jewish ___ Bereavement ___ Communion ___ Lisa exploration ___ ___ Life review _x__ Prayer ___ Reconciliation ___ Sacrament of Sick _x__ Supportive presence ___ Wedding ___ Other (describe below) Pastoral Comments this patient was seen in a past admission; pt immediately recognizes this pearl diver; pt admits that he has not slept much until today and does want to sleep; however pt requests that pearl diver return to visit; pt welcomes presence and a prayer at this time
[2022-10-20 20:00] VITALS: BP 105/65; PULSE 62; RESP 15; TEMP 36.7; O2SAT 97
[2022-10-20] MEDS: Nicotine Polacrilex 2 MG GUM PO (21:54)
[2022-10-21] MEDS: Gabapentin 100 MG Capsule 600 MG PO (05:13)
[2022-10-21] MEDS: LORazepam 1 MG Tablet PO ×3 (05:13→21:30)
[2022-10-21] MEDS: Ketorolac 15 MG/ML Vial IM ×2 (05:23→14:56)
[2022-10-21 05:30] VITALS: BP 104/74; PULSE 70; RESP 14; TEMP 36.6; O2SAT 93
[2022-10-21 06:02] LABS: Absolute Lymphocyte Count 3.18 X10^3/uL (0.83-4.51); Absolute Neutrophil Count 6.1 X10^3/uL (2.0-7.7); Basophil# 0.07 X10^3/uL; Basophil% 0.7 % (0-1); Eosinophil# 0.22 X10^3/uL; Eosinophils% 2.1 % (0-5); Hematocrit 47.5 % (40-54); Hemoglobin 15.4 g/dL (13.0-16.5); Lymphocyte # 3.18 X10^3/ul (0.83-4.51); Lymphocyte % 30.6 % (19-41); Mean Corp Hgb Conc 32.4 g/dL (32-36); Mean Corpuscular Hgb 29.3 pg (27.0-32.0); Mean Corpuscular Volume 90.3 fL (80-94); Mean Platelet Vol. 10.2 fl (6.2-12.0); Monocyte# 0.85 X10^3/uL; Monocyte% 8.2 % (0-10); NRBC Flagged by Analyzer 0 % (0-5); Neutrophil # 6.05 X10^3/uL (2.7-7.7); Neutrophil % 58.1 % (47-70); Platelet Count 361 K/mm3 (150-450); RBC Distribution Width CV 12.4 % (11.6-14.6); RBC Distribution Width SD 41.2 fl (35.1-43.9); Red Blood Count 5.26 M/mm3 (4.6-6.2); White Blood Count 10.4 K/mm3 (4.4-11.0)
[2022-10-21] MEDS: Buprenorphine HCl 2 MG TAB.SUBL SL ×2 (07:29→14:56)
[2022-10-21] MEDS: DULoxetine Hcl 30 MG Capsule PO (07:29)
[2022-10-21 07:55] VITALS: BP 104/58; PULSE 57; RESP 16; TEMP 36.8; O2SAT 97
--- NOTE | 2022-10-21 11:06 | PN.HOSP_ITS ---
Reason for Visit Reason for Visit: Diagnoses Opioid dependence, uncomplicated (10/19/22) Subjective Subjective No change from yesterday, still has some pain in would like to increase his gabapentin if possible Objective Data Objective Data Vital Signs: Vital Signs Temp Pulse Resp BP Pulse Ox O2 Del Method 98.2 F 57 L 16 104/58 L 97 Room Air 10/21/22 07:55 10/21/22 07:55 10/21/22 07:55 10/21/22 07:55 10/21/22 07:55 10/21/22 07:55 Oxygen Delivery Method Room Air Weight: 146 lb Body Mass Index (BMI) 19.8 Intake & Output: Intake and Output for Last 24 Hours 10/20/22 10/21/22 10/22/22 03:59 03:59 03:59 Intake Total 1780 / 1780 360 / 360 Balance 1780 / 1780 360 / 360 Lab / Micro Data Result Diagrams: 10/21/22 05:34 10/19/22 21:15 Labs: Laboratory Results - last 24 hr 10/21/22 05:34: WBC 10.4, RBC 5.26, Hgb 15.4, Hct 47.5, MCV 90.3, MCH 29.3, MCHC 32.4 D, RDW Std Deviation 41.2, RDW Coeff of Luisito 12.4, Plt Count 361, MPV 10.2, Immature Gran % (Auto) 0.300, Neut % (Auto) 58.1, Lymph % (Auto) 30.6, [place] % (Auto) 8.2, Eos % (Auto) 2.1, Baso % (Auto) 0.7, Absolute Neuts (auto) 6.1, Absolute Lymphs (auto) 3.18, Nucleated RBC % 0 Physical Exam Narrative General: Alert, Oriented x3, Cooperative, No apparent distress HEENT: Atraumatic, PERRLA, EOMI, Normocephalic Oral: Moist Mucosa Neck: Supple, No JVD Lungs: Clear to auscultation, Normal air movement, No rhonchi, No wheeze, No rales Cardiovascular: Regular rate, Regular Rhythm, Normal S1, Normal S2, No murmurs Abdomen: Soft, Non Tender, Non-Distended, No Hepato-splenomegaly Extremities: No edema, Capillary Refill Less than 3 Seconds Skin: No rashes, No breakdown Musculoskeletal: No Tenderness to Palpation of Joints or Extremities Neurological: Cranial nerves II-XII grossly intact, Motor Exam 5/5 strength throughout, Sensory exam intact to light touch and pain Psych/Mental Status: Flat affect, Appropriate Assessment & Plan Assessment/Plan (1) Fentanyl dependence: (2) Desire for detoxification: PLAN: Plan 1. Acute opiate withdrawal/tobacco abuse/chronic pain/anxiety ? Continue with the opiate withdrawal protocol ? We will have him follow-up with 180 to discuss discharge planning ? Continue with his gabapentin for his chronic pain, will increase to 900 mg 3 times daily ? Counseled on cessation of his tobacco abuse ? Continue with Ativan, he is also willing to try Cymbalta to see if that helps with his pain 2. Erythrocytosis?resolved DVT: Ambulation Charges/Coding Visit Charges Inpatient E&M: 04317 Subs Hosp L2
[2022-10-21] MEDS: Gabapentin 300 MG Capsule 900 MG PO ×2 (11:16→16:31)
[2022-10-21 11:26] VITALS: BP 99/53; PULSE 48; RESP 16; TEMP 36.6; O2SAT 97
--- NOTE | 2022-10-21 14:59 | CHAPLAIN ---
Type of Pastoral Visit ___ Initial Visit _x__ Follow-up Visit ___ On-call Visit ___ General Patient Visit ___ Spiritual Assessment ___ Family Conference ___ Bereavement ___ Rapid Response ___ Code Blue ___ Other (describe below) Pastoral Care Referral From _x__ Patient ___ Family ___ Nurse ___ Physician ___ Surveillance Observer ___ Board Setter ___ Other (describe below) Sacrament/Intervention _x__ Active listening ___ Anointing ___ Worship ___ Bereavement ___ Communion _x__ Lisa exploration ___ ___ Life review _x__ Prayer ___ Reconciliation ___ Sacrament of Sick _x__ Supportive presence ___ Wedding ___ Other (describe below) Pastoral Comments patient is awake and reports having slept better last night; pt had requested this follow up; pt admits to feelings of anxiety and states it many times in the conversation; pt states that anxiety is due to going to the rehab and not knowing how it will go there; pt has concerns about the rehab facility, being far from home, getting his clothes, not knowing if it's a nice place with nice people; pt states that he has been praying every night and just wants to get back to a good relationship with his father; pt states that father is very supportive and always there for me; pt asks for a Bible to read and it was given; time given for presence and support; pt admits that being alone in room gives so much time to think and get more anxious;
[2022-10-21] MEDS: Methocarbamol 750 MG Tablet 1500 MG PO ×2 (15:00→21:30)
[2022-10-21 15:03] VITALS: BP 94/46; PULSE 64; RESP 16; TEMP 37.4; O2SAT 97
[2022-10-21 21:30] VITALS: BP 125/68; PULSE 64; RESP 16; TEMP 36.9; O2SAT 94
[2022-10-21] MEDS: traZODone 100 MG Tablet PO (21:30)
[2022-10-21] MEDS: cloNIDine HCl 0.1 MG Tablet PO (21:38)
[2022-10-22] MEDS: Buprenorphine HCl 2 MG TAB.SUBL SL ×2 (00:05→11:40)
[2022-10-22] MEDS: Methocarbamol 750 MG Tablet 1500 MG PO (03:36)
[2022-10-22] MEDS: hydrOXYzine PAM 25 MG Capsule 50 MG PO (03:36)
[2022-10-22 03:43] VITALS: BP 103/64; PULSE 72; RESP 16; TEMP 36.4; O2SAT 96
[2022-10-22] MEDS: LORazepam 1 MG Tablet PO (07:09)
[2022-10-22] MEDS: Gabapentin 300 MG Capsule 900 MG PO ×2 (07:09→11:40)
[2022-10-22 07:44] VITALS: O2SAT 97
[2022-10-22] MEDS: DULoxetine Hcl 30 MG Capsule PO (08:14)
[2022-10-22] MEDS: Ketorolac 15 MG/ML Vial IM (08:14)
[2022-10-22 08:35] VITALS: BP 109/66; PULSE 62; RESP 18; TEMP 36.6; O2SAT 98
[2022-10-22] MEDS: cloNIDine HCl 0.1 MG Tablet PO (10:51)
[2022-10-22] MEDS: Dicyclomine 10 MG Capsule 20 MG PO (10:51)
--- NOTE | 2022-10-22 11:33 | PCM.PN.HOSP ---
Reason for Visit Reason for Visit: Diagnoses Opioid dependence, uncomplicated (10/19/22) Subjective Subjective Symptoms are improved, no issues overnight Objective Data Objective Data Vital Signs: Vital Signs Temp Pulse Resp BP Pulse Ox O2 Del Method 97.9 F 62 18 109/66 98 Room Air 10/22/22 08:35 10/22/22 08:35 10/22/22 08:35 10/22/22 08:35 10/22/22 08:35 10/22/22 09:00 Oxygen Delivery Method Room Air Weight: 146 lb Body Mass Index (BMI) 19.8 Intake & Output: Intake and Output for Last 24 Hours 10/21/22 10/22/22 10/23/22 03:59 03:59 03:59 Intake Total 1780 / 1780 1760 / 1760 Balance 1780 / 1780 1760 / 1760 Lab / Micro Data Result Diagrams: 10/21/22 05:34 10/19/22 21:15 Physical Exam Narrative General: Alert, Oriented x3, Cooperative, No apparent distress HEENT: Atraumatic, PERRLA, EOMI, Normocephalic Oral: Moist Mucosa Neck: Supple, No JVD Lungs: Clear to auscultation, Normal air movement, No rhonchi, No wheeze, No rales Cardiovascular: Regular rate, Regular Rhythm, Normal S1, Normal S2, No murmurs Abdomen: Soft, Non Tender, Non-Distended, No Hepato-splenomegaly Extremities: No edema, Capillary Refill Less than 3 Seconds Skin: No rashes, No breakdown Musculoskeletal: No Tenderness to Palpation of Joints or Extremities Neurological: Cranial nerves II-XII grossly intact, Motor Exam 5/5 strength throughout, Sensory exam intact to light touch and pain Psych/Mental Status: Flat affect, Appropriate Assessment & Plan Assessment/Plan (1) Fentanyl dependence: (2) Desire for detoxification: PLAN: Plan 1. Acute opiate withdrawal/tobacco abuse/chronic pain/anxiety ? Continue with the opiate withdrawal protocol ? He has agreed to be transition to inpatient rehab tomorrow ? Continue with his gabapentin at his increased dose of 900 mg 3 times a day ? Counseled on cessation of his tobacco abuse ? Continue with Ativan, will continue with the Cymbalta 2. Erythrocytosis?resolved DVT: Ambulation Charges/Coding Visit Charges Inpatient E&M: 04161 Subs Hosp L2
[2022-10-22] MEDS: LORazepam 1 MG Tablet 0.5 MG PO (14:11)
[2022-10-22 14:25] VITALS: BP 118/70; PULSE 79; RESP 18; TEMP 36.6; O2SAT 97
== END 2022-10-22 14:27 | disposition left against medical advice (07) | DRG 770 ==
LOC: ED 21:12 → MS3 22:53
PROVIDERS: Admitting Provider Hospitalist; Emergency Provider Student in an Organized Health Care Education/Training Program; Visit Provider Family Medicine
DX: F11.23 Opioid dependence with withdrawal (principal); F13.20 Sedative, hypnotic or anxiolytic dependence, uncomplicated; F14.10 Cocaine abuse, uncomplicated; F17.210 Nicotine dependence, cigarettes, uncomplicated; F41.9 Anxiety disorder, unspecified; M79.606 Pain in leg, unspecified; D75.1 Secondary polycythemia; G89.29 Other chronic pain; Z79.899 Other long term (current) drug therapy; Z53.29 Procedure and treatment not carried out because of patient's decision for other reasons
CPT/HCPCS: 36415; 80048; 80307; 82077; 85025; 99283; 99406

== ENCOUNTER 2022-12-11 17:57 | Inpatient (IN) | payer MEDICAID, SELFPAY ==
[2022-12-11 17:58] VITALS: BP 131/91; PULSE 96; RESP 18; TEMP 36.8; O2SAT 100; BMI 20.5
--- NOTE | 2022-12-11 18:16 | EX.ED.SAOD ---
HPI History of Present Illness Chief Complaint: Substance Abuse Informant: patient Onset/Context/Timing Onset: Yesterday Context: Gradual Onset Timing: Continuous Narrative Narrative: Patient presenting asking for detox. He states he has been on Klonopin for over a year because of anxiety related to PTSD, as well as gabapentin. He states he has been in between doctors after moving, and runs out of the Klonopin, he has been out of it for over a month, getting some off of the street from dealers, in addition to fentanyl. He states he has been used to using fentanyl occasionally whenever he is out of the benzodiazepine, however for the past month he has been using the both regularly from the street and once detoxed off, he does want treatment for his anxiety, and open to suggestions there although he is asking for benzos now for his anxiety. Been feeling significant withdrawal since he has had no medication/drugs all day today, last use of anything was yesterday. No IV drug use. When he uses the fentanyl he is snorting it. PFSH PFS Medical History Anxiety Polysubstance abuse PTSD (post-traumatic stress disorder) Smoker Home Medications gabapentin 100 mg capsule 600 mg PO TID nerve pain 09/17/22 [History Last Taken 09/15/22] lorazepam 1 mg tablet 1 mg PO TID anxiety 09/17/22 [History Last Taken 09/15/22] Allergy/AdvReac Type Severity Reaction Status Date / Time iodine Allergy Hives Verified 12/11/22 17:59 codeine AdvReac Vomiting Verified 12/11/22 17:59 Family History (Updated 12/11/22 @ 19:[address] Beverly Shaikh MD) Mother Breast cancer Father CAD (coronary artery disease) Myocardial infarction Hypertension Heart disease Surgical History History of surgery on lower extremity Social History (Updated 12/11/22 @ 19:[address] Beverly Shaikh MD) household members: other details: Lives with his family. Smoking Status: Current every day smoker tobacco type: cigarettes Smoking packs per day: 0.5 Smoking cigarettes per day: 10.0 alcohol intake: never substance use type: heroin and other details: BZD. ROS ROS ED Constitutional Constitutional ED: Denies chills or fever(s) Eyes Eyes: Denies change in vision or diplopia ENT ENT ED: Denies rhinorrhea or sore throat Cardiovascular Cardiovascular: Denies chest pain or palpitations Respiratory/Chest Respiratory/Chest: Denies cough or dyspnea Gastrointestinal Gastrointestinal: Reports abdominal pain, constipation and nausea; Denies diarrhea or vomiting Genitourinary Genitourinary ED: Denies dysuria or hematuria Musculoskeletal Musculoskeletal: Reports back pain and myalgias; Denies neck pain Integumentary Denies abscess or rash Neurologic Neurologic: Denies headache(s), paresthesias or weakness Psychiatric Psychiatric: Reports anxiety; Denies suicidal thoughts EXAM Physical Exam Const Vital Signs: 12/11/22 17:58 Temperature 98.3 F Temperature Source Temporal Pulse Rate 96 Respiratory Rate 18 Blood Pressure 131/91 H Blood Pressure Mean 104 Pulse Ox 100 Oxygen Delivery Method Room Air Positive well nourished and well developed General Appearance ED: well developed and NAD HEENT Reports moist mucous membranes normocephalic and atraumatic Eyes PERRL and EOMs intact bilaterally Neck full ROM and supple Resp normal respiratory effort and clear to auscultation bilaterally Cardio regular rate, regular rhythm and no murmurs GI non-tender and non-distended Auscultation: normoactive bowel sounds Palpation: soft Back/Spine no CVA tenderness General Back: other FROM Extremity normal to inspection Extremity Narrative: All compartments soft nondistended General Extremety ED: Negative for edema, pulses abnormal or tenderness General Extremity: Negative for edema or pulses abnormal Neuro oriented x3, CN's II-XII intact bilaterally and no sensory deficits noted Sensorium / Orientation: awake and alert Motor Exam: strength 5/5 throughout Psych mental status grossly normal and thought process normal Mood & Affect: anxious Skin no rashes or lesions noted and no wounds MDM MDM MDM Narrative Medical decision making narrative: Basic labs obtained on this patient, and I reviewed them, and his toxicology results. Mild hypokalemia which I suspect will probably be due to shift from hyperventilation and anxiety, he has no symptoms to suggest he should be total body hypokalemic. I had nursing give him clonidine and tramadol for his symptoms. He is asking for some benzodiazepines for his anxiety, I advised we will not be doing that at this time since we are admitting him to detox, until hospitalist sees him. Lab Data Attestation: I reviewed the patient's lab results. Management Discussion w/another healthcare provider: Hospitalist Discharge Plan Dx/Rx/DC Orders Clinical Impression: Benzodiazepine abuse, Fentanyl dependence Disposition Disposition: Acute Care Hospital [facility] Discharge Date/Time: 12/11/22 19:40
--- NOTE | 2022-12-11 18:38 | PCM.HP.STD ---
HPI - General General Date of Admission: 12/11/22 Date of Service: 12/11/22 Chief Complaint: Opiate and BZD withdrawal. HPI Narrative The patient is a 27 y/o M w/ PMHx: Chronic neuropathy, PTSD/Anxiety, Polysubstance abuse (BZD/Klonopin, Fentanyl (snorted) and has been using both daily for at least 1 month), Tobacco use who presents to the [facility] ED on 12/11/22 with ongoing substance abuse, both BZD and opiates with acute withdrawal, onset starting on day of presentation with last usage the day prior with snorted fentanyl and oral BZD unclear type, progressively worsening with onset of nausea, tremors, agitation and intermittent fatigue, diaphoresis, body aches, piloerection, restless legs, tactile disturbances and severe anxiety. Patient is interested in attaining clean status and transitioning to alternate agent for his anxiety and PTSD. Work-up in the ED included T98.3, heart rate 96, BP 131/91, respiratory rate 18, 100% on room air, pending CBC, CMP, UDS and ethyl alcohol level upon requested evaluation of patient. In the ED patient administered tramadol 100 mg p.o. x1, Zofran 8 mg p.o. x1, gabapentin 300 mg p.o. x1 as well as clonidine 0.1 mg p.o. x1. [facility] Medical History Anxiety Polysubstance abuse PTSD (post-traumatic stress disorder) Smoker Home Medications gabapentin 100 mg capsule 600 mg PO TID nerve pain 09/17/22 [History Last Taken 09/15/22] lorazepam 1 mg tablet 1 mg PO TID anxiety 09/17/22 [History Last Taken 09/15/22] Allergy/AdvReac Type Severity Reaction Status Date / Time iodine Allergy Hives Verified 12/11/22 17:59 codeine AdvReac Vomiting Verified 12/11/22 17:59 Family History (Updated 12/11/22 @ 19:[address] Beverly Shaikh MD) Mother Breast cancer Father CAD (coronary artery disease) Myocardial infarction Hypertension Heart disease Surgical History (Updated 12/11/22 @ 18:[address] Beverly Shaikh MD) History of surgery on lower extremity Social History (Updated 12/11/22 @ 19:[address] Beverly Shaikh MD) household members: other details: Lives with his family. Smoking Status: Current every day smoker tobacco type: cigarettes Smoking packs per day: 0.5 Smoking cigarettes per day: 10.0 alcohol intake: never substance use type: heroin and other details: BZD. ROS ROS Narrative Admission Review of Systems: CONSTITUTIONAL: No weight loss, fever, + chills, weakness or fatigue. HEENT: + rhinorrhea/congestion. Eyes: No visual loss, blurred vision, double vision or yellow sclerae. Ears, Nose, Throat: No hearing loss, sneezing, sore throat. SKIN: No rash or itching, lesions, wounds. CARDIOVASCULAR: + Palpitations.No chest pain, chest pressure or chest discomfort, edema, orthopnea, syncopal events. RESPIRATORY: No shortness of breath, cough or sputum, wheezing, hemoptysis. GASTROINTESTINAL: + anorexia, nausea without vomiting, abdominal cramping, No diarrhea, melena, BRBPR. GENITOURINARY: No dysuria, frequency, urgency or retention. NEUROLOGICAL: + Chronic neuropathy, restless legs. No headache, dizziness, syncope, paralysis, ataxia, numbness or tingling in the extremities, focal weakness, change in bowel or bladder control, seizure. MUSCULOSKELETAL: + muscle, back pain, joint pain or stiffness. HEMATOLOGIC: No anemia, bleeding or bruising. LYMPHATICS: No enlarged nodes. No history of splenectomy. PSYCHIATRIC: + history of depression or anxiety. ENDOCRINOLOGIC: No reports of sweating, cold or heat intolerance. No polyuria or polydipsia. ALLERGIES: No history of asthma, hives, eczema or rhinitis. Vital Signs Vital Signs Vital Signs: 12/11/22 17:58 Temperature 98.3 F Temperature Source Temporal Pulse Rate 96 Respiratory Rate 18 Blood Pressure 131/91 H Blood Pressure Mean 104 Pulse Ox 100 Oxygen Delivery Method Room Air Weight Weight: 150 lb 14.4 oz Body Mass Index (BMI) 20.5 Physical Exam Narrative Physical Examination: General: Awake, alert, oriented x 3 and cooperative, seated upright in ED bed, extremely restless and anxious, agitated. Skin: Normal color, normal turgor, no icterus, no cyanosis, several thorax and extremity tattoos present. HEENT: AT/NC, EOMI, PERRLA, dry MM, rhinorrhea evident, no carotid bruits or JVD noted. Lungs: Mild diminished, greater bases, moderate effort, occasional end expiratory wheeze, no rales or rhonchi. Heart: Currently regular rate and rhythm; no gallop, rub audible. Abdomen: Soft, mild generalized discomfort with palpation, no marked distention, hyperactive bowel sounds, no obvious HSM. Extremities: No cyanosis, clubbing, or edema. Neurological: Patient awake, alert, oriented as noted, cognitive function intact; pupils equally reactive to light and accommodation, cranial nerves II-XII grossly normal, moving all 4 extremities, no focal deficits, strength mildly to moderately globally decreased secondary to severity of withdrawal symptoms, restless, agitated. Psychiatric: Affect appears agitated, anxious, restless, no acute evidence of depressive feelings. Assessment & Plan Assessment/Plan (1) Benzodiazepine abuse: (2) Fentanyl dependence: PLAN: Plan The patient is a 27 y/o M w/ PMHx: Chronic neuropathy, PTSD/Anxiety, Polysubstance abuse (BZD/Klonopin, Fentanyl (snorted) and has been using both daily for at least 1 month), Tobacco use who presents to the [facility] ED on 12/11/22 with ongoing substance abuse, both BZD and opiates with acute withdrawal. 1. Acute BZD Withdrawal: Will admit to medical surgical floor, routine labs ordered per ED and pending upon evaluation. Given interest in transitioning off BZD and willingness to trial other agents for his anxiety and PTSD, will initiate and continue on protocol with taper course of phenobarbital with IV load dose x 1 upon transition to the floor given severity of symptoms, scheduled gabapentin w/ PRN breakthrough, as needed Catapres, Bentyl, Vistaril, IV fluids, IV antiemetics, Tylenol as needed for pain. Will consult Case management for assistance for transition to next level of rehabilitation care and will need early follow-up/assistance with Dr. Delgado given need for prolonged taper. 2. Acute Opiate Withdrawal: Given patient concurrent usage of opiates (heroin), will additionally initiate and continue on protocol with tapering course of Subutex, as needed tylenol, ibuprofen, bowel regimen, gabapentin, Bentyl, Vistaril, methocarbamol, clonidine, PRN nightly trazodone for insomnia, IV fluids, IV antiemetics. Once patient clinically improved and completion of taper nearing will plan consultation with case management for transition to next level of rehabilitation care. 3. Polysubstance Abuse: Will obtain HIV and hepatitis panel given significant polysubstance use although does deny IV substance use. Patient currently not candidate for hep C treatment currently as needs to be clean, sober x 6 months, documented attendance NA or AA meetings, counseling and ongoing negative drug screens. 4. Tobacco use: Encourage tobacco cessation, RT consulted for education, NR ordered. 5. Anxiety/PTSD: Will benefit from therapy and counseling and consideration of other agent aside BZD given abuse history. 6. Chronic neuropathy: Will continue patient home gabapentin regimen with PRN as noted #1 given presentation. 7. DVT Prophylaxis: Low risk, encourage ambulation. Admission Evaluation Time spent evaluating chart, patient history, patient evaluation, care planning and discussion with specialists: 55 minutes. Charges/Coding Visit Charges Inpatient E&M: 81177 Init Hosp L2
[2022-12-11] MEDS: cloNIDine HCl 0.1 MG Tablet PO ×2 (18:45→20:55)
[2022-12-11] MEDS: Ondansetron ODT 4 MG Tablet 8 MG PO (18:45)
[2022-12-11] MEDS: traMADol 50 MG Tablet 100 MG PO (18:45)
[2022-12-11] MEDS: Gabapentin 300 MG Capsule PO (18:45)
--- NOTE | 2022-12-11 18:47 | CM.ED ---
Social Work Note Referral Source: Case Find Referral Reason: RAMP FRANNIE met with patient and introduced herself and role as [facility] Public Transit Bus Driver. Patient agreeable to speak with FRANNIE. SW inquired about patient's interest in detox, AOD use and knowledge of RAMP program. Patient reports he wants to detox from fentanyl and was recently admitted for RAMP. FRANNIE briefly reviewed RAMP rules including patient's belongings being locked up and meeting with Nandini addiction therapist to discuss discharge/ after care plan. Patient reports understanding and voiced no other needs. Plan: [facility] [place], [place]
[2022-12-11 18:50] VITALS: BP 144/84; PULSE 89; RESP 16; O2SAT 100
[2022-12-11 18:55] VITALS: BP 144/89; PULSE 66; RESP 16; TEMP 36.6; O2SAT 100
[2022-12-11 19:15] LABS: Absolute Lymphocyte Count 1.72 X10^3/uL (0.83-4.51); Basophil# 0.04 X10^3/uL; Basophil% 0.3 % (0-1); Eosinophil# 0.03 X10^3/uL; Eosinophils% 0.2 % (0-5); Hematocrit 47.1 % (40-54); Hemoglobin 16.3 g/dL (13.0-16.5); Lymphocyte # 1.72 X10^3/ul (0.83-4.51); Lymphocyte % 13.5 % (19-41); Mean Corp Hgb Conc 34.6 g/dL (32-36); Mean Corpuscular Hgb 29.8 pg (27.0-32.0); Mean Corpuscular Volume 86.1 fL (80-94); Mean Platelet Vol. 10.2 fl (6.2-12.0); Monocyte# 0.98 X10^3/uL; Monocyte% 7.7 % (0-10); NRBC Flagged by Analyzer 0 % (0-5); Neutrophil # 9.98 X10^3/uL (2.7-7.7); Neutrophil % 78.1 % (47-70); Platelet Count 408 K/mm3 (150-450); RBC Distribution Width CV 12.5 % (11.6-14.6); RBC Distribution Width SD 39.3 fl (35.1-43.9); Red Blood Count 5.47 M/mm3 (4.6-6.2); White Blood Count 12.8 K/mm3 (4.4-11.0)
[2022-12-11 19:38] LABS: Alcohol, Blood (Medical)-Serum < 3.0 mg/dL
[2022-12-11 19:40] LABS: ALB/GLOB Ratio 1.2 RATIO (0.9-2.4); AST(SGOT) 31 U/L (15-37); Alanine Aminotransfer ALT/SGPT 40 U/L (16-61); Albumin, Serum 4.3 g/dL (3.2-5.0); Alkaline Phosphatase 80 U/L (45-117); Anion Gap 7 (5-15); BUN 10 mg/dL (7-18); BUN/Creat Ratio 8.7 RATIO (10-20); Calcium,Total 9.4 mg/dL (8.5-10.1); Chloride 100 mmol/L (98-107); Creatinine, Serum 1.15 mg/dL (0.70-1.30); EST Glomerular Filtration Rate 80 mL/min (>60); Est Glom Filt Rate - Afr Amer 97 mL/min (>60); Estimated Creatinine Clearance 91.76 ml/min; Globulin 3.7 g/dL (2.2-4.2); Glucose 108 mg/dL (74-106); Potassium 3.3 mmol/L (3.5-5.1); Sodium Level 134 mmol/L (136-145)
[2022-12-11 19:46] LABS: Amphetamine Urine VISTA NEGATIVE (<1000 ng/mL); Barbiturate Urine VISTA NEGATIVE (< 200 ng/mL); Benzodiazepine Urine VISTA POSITIVE (< 200 ng/mL); Cocaine Urine VISTA NEGATIVE (< 300 ng/mL); Ecstacy Urine VISTA NEGATIVE (< 500 ng/mL); Methadone Urine VISTA NEGATIVE (< 300 ng/mL); PCP Urine VISTA NEGATIVE (< 25 ng/mL); THC Urine VISTA POSITIVE (< 50 ng/mL); Vista UDS pH Range 7
[2022-12-11 20:16] VITALS: BMI 20.4
[2022-12-11 20:23] VITALS: BP 131/82; PULSE 66; RESP 18; TEMP 37.1; O2SAT 99
[2022-12-11] MEDS: Gabapentin 600 MG Tablet PO (20:54)
[2022-12-11] MEDS: Ibuprofen 600 MG Tablet PO (20:54)
[2022-12-11] MEDS: traZODone 100 MG Tablet PO (20:55)
[2022-12-11] MEDS: Phenobarbital 32.4 MG Tablet 97.2 MG PO (20:55)
[2022-12-11] MEDS: Lactated Ringers 1,000 ML 125 ML IV (21:11)
[2022-12-11] MEDS: Buprenorphine HCl 2 MG TAB.SUBL 4 MG SL (21:15)
--- NOTE | 2022-12-11 23:18 | PCM.HOSP.N ---
Hospitalist Note I was called because the patient was adamant that he did not want detox for benzodiazepines and only for opiates. We did an OARRS report and the last time he was prescribed benzodiazepines was on 09/22/2022 for lorazepam 1 mg and he was given 6 tablets for 4 days worth. No prescriptions have been written since that time. If he is getting benzodiazepines he is getting them off the street and they are not prescribed. I informed the patient that we would not prescribe any benzos and he will go through detox for benzodiazepines as well as for his oxycodone. His OARRS also shows multiple providers for different medications for a total of 26 providers since 02/18/2021. Patient did threaten to leave [place] but has not done so yet.
[2022-12-11 23:44] VITALS: O2SAT 99
[2022-12-12] MEDS: Acetaminophen 325 MG Tablet 650 MG PO (00:04)
[2022-12-12] MEDS: hydrOXYzine PAM 25 MG Capsule 50 MG PO ×2 (00:05→15:47)
[2022-12-12] MEDS: Phenobarbital 32.4 MG Tablet 97.2 MG PO ×5 (00:05→15:47)
[2022-12-12 04:00] VITALS: BP 108/73; PULSE 69; RESP 18; TEMP 36.6; O2SAT 99
[2022-12-12] MEDS: Buprenorphine HCl 2 MG TAB.SUBL 4 MG SL ×2 (04:30→12:35)
[2022-12-12] MEDS: Methocarbamol 750 MG Tablet 1500 MG PO ×2 (04:35→11:18)
[2022-12-12] MEDS: Gabapentin 600 MG Tablet PO ×2 (06:37→13:53)
--- NOTE | 2022-12-12 07:56 | NURSING ---
inadequate staffing 01/[address] for whole unit. emergency charting utilized this shift
[2022-12-12 07:58] VITALS: O2SAT 96
[2022-12-12 08:00] VITALS: BP 110/63; PULSE 52; RESP 18; TEMP 36.4; O2SAT 98
[2022-12-12 08:32] LABS: Hepatitis B Surface Antibody Non-Reactive
[2022-12-12] MEDS: Gabapentin 300 MG Capsule PO ×2 (08:33→16:41)
[2022-12-12] MEDS: Ibuprofen 600 MG Tablet PO (08:34)
--- NOTE | 2022-12-12 11:05 | ADDICTION ---
This curriculum writer met with PT to conduct ASAM, MSE, AUDIT, DUDIT assessments. PT A+Ox4 and participated actively. All assessments completed and placed in PT's chart. PT reports that he plans to f/u with treatment services in [place] but was unclear about the place. He was in active w/d and struggle to discharge plan. I discussed with him that he has been here 3x in 3 months and left AMA all 3x. He will need to do treatment this time in order to return to the [facility] program in the future. Primo, addiction therapist, will be in tomorrow to follow up.
[2022-12-12] MEDS: Ketorolac 10 MG Tablet PO (13:53)
[2022-12-12] MEDS: cloNIDine HCl 0.1 MG Tablet PO (15:48)
--- NOTE | 2022-12-12 16:27 | NURSING ---
emergency charting utilized 12/12 7a-7p
--- NOTE | 2022-12-12 16:31 | NURSING ---
pt called nurse in room and stated, the anxiety too much for me. wanting to just get out of here scrap charger aware and dr. iraheta paged. dr. iraheta stated, that inform pt that if leaves again ama that unable to readmitted as was just here 2 weeks ago and did same thing.
--- NOTE | 2022-12-12 16:53 | PCM.PN.HOSP ---
Reason for Visit Reason for Visit: Diagnoses Opioid dependence, uncomplicated (12/11/22) Sedative, hypnotic or anxiolytic abuse, uncomplicated (12/11/22) Subjective Subjective Follow-up for acute opioid and benzodiazepine withdrawal syndrome Objective Data Objective Data Vital Signs: Vital Signs Temp Pulse Resp BP Pulse Ox O2 Del Method 97.6 F L 52 L 18 110/63 98 Room Air 12/12/22 08:00 12/12/22 08:00 12/12/22 08:00 12/12/22 08:00 12/12/22 08:00 12/12/22 08:00 Oxygen Delivery Method Room Air Weight: 150 lb 12.739 oz Body Mass Index (BMI) 20.4 Intake & Output: Intake and Output for Last 24 Hours 12/10/22 12/11/22 12/12/22 23:59 23:59 23:59 Intake Total 3070.7692 / 3070.7692 Balance 3070.7692 / 3070.7692 Lab / Micro Data Result Diagrams: 12/11/22 18:40 12/11/22 18:40 Labs: Laboratory Results - last 24 hr 12/11/22 18:40: WBC 12.8 H, RBC 5.47, Hgb 16.3, Hct 47.1, MCV 86.1, MCH 29.8, MCHC 34.6, RDW Std Deviation 39.3, RDW Coeff of Luisito 12.5, Plt Count 408, MPV 10.2, Immature Gran % (Auto) 0.200, Neut % (Auto) 78.1 H, Lymph % (Auto) 13.5 L, [place] % (Auto) 7.7, Eos % (Auto) 0.2, Baso % (Auto) 0.3, Absolute Neuts (auto) 10.0 H, Absolute Lymphs (auto) 1.72, Nucleated RBC % 0 12/11/22 18:40: Sodium 134 L, Potassium 3.3 L, Chloride 100, Carbon Dioxide 27.0, Anion Gap 7, BUN 10, Creatinine 1.15, Estim Creat Clear Calc 91.76, Est GFR (MDRD) Af Amer 97, Est GFR (MDRD) Non-Af 80, BUN/Creatinine Ratio 8.7 L, Glucose 108 H, Calcium 9.4, Total Bilirubin 0.40, AST 31, ALT 40, Alkaline Phosphatase 80, Total Protein 8.0, Albumin 4.3, Globulin 3.7, Albumin/Globulin Ratio 1.2 12/11/22 18:40: Ethyl Alcohol < 3.0 12/11/22 18:40: Urine Opiates Screen NEGATIVE, Urine Methadone Screen NEGATIVE, Ur Barbiturates Screen NEGATIVE, Ur Phencyclidine Scrn NEGATIVE, Ur Amphetamines Screen NEGATIVE, MDMA (Ecstasy) Screen NEGATIVE, U Benzodiazepines Scrn POSITIVE H, Urine Cocaine Screen NEGATIVE, U Cannabinoids Screen POSITIVE H, Ur Drug Screen Comment 12/11/22 18:40: Hep Bs Antigen Nonreactive, Hep Bs Antibody Cancelled, Hepatitis C Antibody Nonreactive, HIV 1&2 Antibody Nonreactive 12/12/22 07:19: Hep Bs Antibody Non-Reactive Physical Exam Narrative Patient complains of anxiety. He also complains of muscle aches and pain and restlessness and cramps. He is asking for IV Ativan which I told him we cannot give. Patient has been getting Ativan from the streets and also some prescriptions. Physical exam General: Alert, Oriented x3, Cooperative HEENT: Atraumatic, PERRLA, EOMI, Normocephalic Oral: No Gingival or Mucosal Lesions/ Ulcerations Neck: Supple, No JVD, Negative Carotid Bruits Lungs: Air entry diminished in bilateral lung bases. No crepitation/rhonchi Cardiovascular: Regular rate, Regular Rhythm, Normal S1, Normal S2, No murmurs Abdomen: Bowel Sounds Present, Soft, Non Tender, Non-Distended : No renal angle tenderness. No suprapubic tenderness. Extremities: No edema, Capillary Refill Less than 3 Seconds Skin: No rashes, No breakdown Musculoskeletal: No Tenderness to Palpation of Joints or Extremities Neurological: Cranial nerves II-XII grossly intact, DTR 2+/4 and Symmetrical, Neuro grossly intact Psych/Mental Status: anxious Assessment & Plan Assessment/Plan (1) Benzodiazepine abuse: (2) Fentanyl dependence: PLAN: Plan The patient is a 27 y/o M was admitted with acute opioid benzodiazepine withdrawal syndrome. 1. Acute benzodiazepine withdrawal syndrome with history of chronic benzodiazepine/Ativan use disorder, dependence and tolerance: Patient is being admitted on the MedSur floor. The patient on phenobarbital based order set along with other adjunctive medications as needed for benzodiazepine withdrawal symptom control. Patient request for IV Ativan was declined. Discussed with the 1 AT, Gena psychiatric social worker. Patient also sometimes threatened to sign AMA. Patient was clearly stated physical exam and this will be his second AMA this year. 2. Acute Opiate Withdrawal syndrome with chronic opioid use disorder,: Given patient concurrent usage of opiates (heroin), patient is on buprenorphine along with other adjunctive medications. Patient is on as needed tylenol, ibuprofen, bowel regimen, gabapentin, Bentyl, Vistaril, methocarbamol, clonidine, PRN nightly trazodone for insomnia 3. Polysubstance Abuse: HIV 1 and 2 antibody nonreactive. Hepatitis B surface antigen, antibody and hep C antibody are nonreactive. 4. Chronic smoking/nicotine tobacco use disorder: Encourage tobacco cessation, RT consulted for education, NR ordered. 5. Anxiety/PTSD: 180 Case management follow-up. 6. Chronic neuropathy: Will continue patient home gabapentin regimen with PRN as noted #1 given presentation. 7. DVT Prophylaxis: Low risk, encourage ambulation. Charges/Coding Visit Charges Inpatient E&M: 38164 Subs Hosp L2
--- NOTE | 2022-12-12 18:24 | NURSING ---
1740 pt signed ama papers and sl dc'd. belongings given back from zip tie containers and pt dressing for dc. dr. iraheta aware.
--- NOTE | 2022-12-13 07:21 | PCM.DC.SUM ---
Providers Date of Admission: 12/11/22 Date of Discharge: 12/12/22 Primary Care Physician: No Primary Care Phys Reason For Visit: OPIATE/BZD WITHDRAWAL Diagnosis Discharge Diagnosis (1) Benzodiazepine abuse: Status: Acute Code(s): F13.10 - Sedative, hypnotic or anxiolytic abuse, uncomplicated (2) Fentanyl dependence: Status: Acute Code(s): F11.20 - Opioid dependence, uncomplicated Plan The patient is a 27 y/o M was admitted with acute opioid benzodiazepine withdrawal syndrome. 1. Acute benzodiazepine withdrawal syndrome with history of chronic benzodiazepine/Ativan use disorder, dependence and tolerance: Patient is being admitted on the MedSurg floor. The patient on phenobarbital based order set along with other adjunctive medications as needed for benzodiazepine withdrawal symptom control. Patient request for IV Ativan was declined. Discussed with the 1 AT, Gena drug abuse social worker. Patient also sometimes threatened to sign AMA. Patient was clearly stated physical exam and this will be his second AMA this year. 12/12: Patient later on signed AMA as clearly stated above despite given the warning 2. Acute Opiate Withdrawal syndrome with chronic opioid use disorder,: Given patient concurrent usage of opiates (heroin), patient is on buprenorphine along with other adjunctive medications. Patient is on as needed tylenol, ibuprofen, bowel regimen, gabapentin, Bentyl, Vistaril, methocarbamol, clonidine, PRN nightly trazodone for insomnia 3. Polysubstance Abuse: HIV 1 and 2 antibody nonreactive. Hepatitis B surface antigen, antibody and hep C antibody are nonreactive. 4. Chronic smoking/nicotine tobacco use disorder: Encourage tobacco cessation, RT consulted for education, NR ordered. 5. Anxiety/PTSD: 180 Case management follow-up. 6. Chronic neuropathy: Will continue patient home gabapentin regimen with PRN as noted #1 given presentation. 7. DVT Prophylaxis: Low risk, encourage ambulation. Medications at Discharge Home Medications gabapentin 100 mg capsule 600 mg PO TID nerve pain 09/17/22 lorazepam 1 mg tablet 1 mg PO TID anxiety 09/17/22 Physical Exam Narrative Patient was seen and examined on the day of signing AMA. Weight / BMI Weight Weight: 150 lb 12.739 oz Body Mass Index (BMI) 20.4 ABG / Lab / Microbiology Data Result Diagrams: 12/11/22 18:40 12/11/22 18:40 Laboratory: Laboratory Results - last 24 hr 12/12/22 07:19: Hep Bs Antibody Non-Reactive Meaningful Use Info Meaningful Use Diagnoses (Choose all that apply): None applicable Discharge Plan Admission Admit Date/Time: 12/11/22 18:38 Attending Provider: Freddy Dorsey Primary Care Provider: Care Physician,No Primary Consulting Providers: Beverly Shaikh Discharge Orders/Prescriptions Prescriptions: No Action gabapentin 100 mg capsule 600 mg PO TID lorazepam 1 mg tablet 1 mg PO TID Label Comments: Take 1 tablet by mouth single dose Referrals / Follow Up: Care Physician,No Primary [Primary Care Provider] - Disposition Disposition (needs filled in before D/C Order can be placed): Against Medical Advice Charges/Coding Visit Charges Inpatient E&M: 54321 Disch Hosp
[2022-12-18 20:21] LABS: HIV - WCH Non-Reactive (Nonreactive); Hepatitis B Surface Antigen Non-Reactive (Nonreactive); Hepatitis C Antibody Non-Reactive (Nonreactive)
== END 2022-12-12 17:56 | disposition left against medical advice (07) | DRG 770 ==
LOC: ED 18:43 → PCU 18:57
PROVIDERS: Admitting Provider Family Medicine; Emergency Provider Emergency Medicine; Visit Provider Internal Medicine
DX: F11.23 Opioid dependence with withdrawal (principal); F17.210 Nicotine dependence, cigarettes, uncomplicated; F13.239 Sedative, hypnotic or anxiolytic dependence with withdrawal, unspecified; F41.9 Anxiety disorder, unspecified; G62.9 Polyneuropathy, unspecified; F43.10 Post-traumatic stress disorder, unspecified; Z79.899 Other long term (current) drug therapy; Z53.29 Procedure and treatment not carried out because of patient's decision for other reasons
CPT/HCPCS: 36415; 80053; 80307; 82077; 85025; 86703; 86706; 86803; 87340; 99284; 99406; J7120; J3490

== ENCOUNTER 2023-01-25 17:45 | Inpatient (IN) | payer MEDICAID, SELFPAY ==
[2023-01-25 17:46] VITALS: BP 120/93; PULSE 86; RESP 20; TEMP 36.6; O2SAT 97; BMI 19.5
[2023-01-25 18:46] LABS: Absolute Lymphocyte Count 1.21 X10^3/uL (0.83-4.51); Absolute Neutrophil Count 16.5 X10^3/uL (2.0-7.7); Basophil# 0.06 X10^3/uL; Basophil% 0.3 % (0-1); Eosinophil# 0.03 X10^3/uL; Eosinophils% 0.2 % (0-5); Hematocrit 49.9 % (40-54); Hemoglobin 16.9 g/dL (13.0-16.5); Lymphocyte # 1.21 X10^3/ul (0.83-4.51); Lymphocyte % 6.1 % (19-41); Mean Corp Hgb Conc 33.9 g/dL (32-36); Mean Corpuscular Hgb 29.8 pg (27.0-32.0); Mean Corpuscular Volume 87.9 fL (80-94); Mean Platelet Vol. 10.9 fl (6.2-12.0); Monocyte# 1.99 X10^3/uL; NRBC Flagged by Analyzer 0 % (0-5); Neutrophil # 16.47 X10^3/uL (2.7-7.7); POSITIVE DIFFERENTIAL YES; Platelet Count 298 K/mm3 (150-450); RBC Distribution Width CV 12.4 % (11.6-14.6); RBC Distribution Width SD 40.6 fl (35.1-43.9); Red Blood Count 5.68 M/mm3 (4.6-6.2); White Blood Count 19.8 K/mm3 (4.4-11.0)
[2023-01-25 18:51] LABS: Differential Indicated SCAN CRITERIA MET
[2023-01-25 18:54] LABS: Amphetamine Urine VISTA NEGATIVE (<1000 ng/mL); Barbiturate Urine VISTA NEGATIVE (< 200 ng/mL); Benzodiazepine Urine VISTA POSITIVE (< 200 ng/mL); Cocaine Urine VISTA POSITIVE (< 300 ng/mL); Ecstacy Urine VISTA POSITIVE (< 500 ng/mL); Methadone Urine VISTA NEGATIVE (< 300 ng/mL); PCP Urine VISTA NEGATIVE (< 25 ng/mL); THC Urine VISTA POSITIVE (< 50 ng/mL); Vista UDS pH Range 6
[2023-01-25 18:55] LABS: Anion Gap 7 (5-15); BUN 12 mg/dL (7-18); BUN/Creat Ratio 11.2 RATIO (10-20); Calcium,Total 9.6 mg/dL (8.5-10.1); Chloride 102 mmol/L (98-107); Creatinine, Serum 1.07 mg/dL (0.70-1.30); EST Glomerular Filtration Rate 87 mL/min (>60); Est Glom Filt Rate - Afr Amer 105 mL/min (>60); Estimated Creatinine Clearance 94.11 ml/min; Glucose 110 mg/dL (74-106); Potassium 4.1 mmol/L (3.5-5.1); Sodium Level 134 mmol/L (136-145)
[2023-01-25 19:14] LABS: Differential Comment SCANNED
--- NOTE | 2023-01-25 19:22 | EX.ED.SAOD ---
HPI History of Present Illness Chief Complaint: Substance Abuse Narrative Narrative: 27-year-old male presenting for benzo and fentanyl detox. Patient states he uses all the time. Patient presents today for detox. He is detoxed here before. He states he is not sure if he is withdrawing currently or he has something else. He feels like he has a sore throat and feels generally unwell. He reports a temperature of 100 yesterday. No cough or shortness of breath. PFSH PFSH Medical History Anxiety Benzodiazepine abuse Fentanyl dependence Polysubstance abuse PTSD (post-traumatic stress disorder) Smoker Home Medications gabapentin 100 mg capsule 800 mg PO TID nerve pain 09/17/22 [History Last Taken 09/15/22] lorazepam 1 mg tablet 1 mg PO TID anxiety 09/17/22 [History Last Taken 09/15/22] Allergy/AdvReac Type Severity Reaction Status Date / Time iodine Allergy Hives Verified 01/25/23 17:46 codeine AdvReac Vomiting Verified 01/25/23 17:46 Family History Mother Breast cancer Father CAD (coronary artery disease) Myocardial infarction Hypertension Heart disease Surgical History History of surgery on lower extremity Social History household members: other details: Lives with his family. Smoking Status: Current every day smoker tobacco type: cigarettes alcohol intake: never substance use type: heroin and other details: BZD. ROS ROS ED Constitutional Constitutional ED: Reports chills; Denies fever(s) or sweats Eyes Eyes: Denies blurry vision or change in vision ENT ENT ED: Reports sore throat; Denies ear pain Cardiovascular Cardiovascular: Denies chest pain, palpitations or racing heartbeat Respiratory/Chest Respiratory/Chest: Denies cough, dyspnea or sputum Gastrointestinal Gastrointestinal: Denies abdominal pain, constipation, diarrhea, nausea or vomiting Genitourinary Genitourinary ED: Denies dysuria, hematuria or urinary frequency Musculoskeletal Musculoskeletal: Denies arthralgias, myalgias or neck pain Integumentary Denies abscess, Abrasions or rash Neurologic Neurologic: Denies headache(s), paresthesias or weakness Psychiatric Psychiatric: Reports anxiety; Denies depression, suicidal ideation or suicidal thoughts Endocrine Endocrinology: Denies polydipsia or polyuria EXAM Physical Exam Const Vital Signs: 01/25/23 17:46 01/25/23 19:45 Temperature 97.9 F 97.7 F L Temperature Source Temporal Oral Pulse Rate 86 63 Respiratory Rate 20 H 14 Blood Pressure 120/93 H 107/62 Blood Pressure Mean 102 77 Pulse Ox 97 95 Oxygen Delivery Method Room Air Room Air Positive well nourished Constitutional Narrative: Posterior oropharyngeal erythema including the tonsils. There is exudate on the tonsils. Airway patent without stridor General Appearance ED: NAD; Negative for pallor HEENT Reports moist mucous membranes Eyes PERRL and EOMs intact bilaterally Chest Wall inspection of chest normal Resp normal respiratory effort Cardio regular rate and regular rhythm GI soft to palpation Neuro oriented x3 and CN's II-XII intact bilaterally Psych mental status grossly normal and thought process normal Skin General Skin Exam: Negative for jaundice or pallor MDM MDM MDM Narrative Medical decision making narrative: Patient presenting for detox. Screening blood work was obtained. Patient with a leukocytosis of 19.8. He is also complaining of a sore throat so I did add a strep swab. Renal function electrolytes within normal limits. Urine drug screen positive for opiates, cocaine, cannabinoids, benzodiazepines, MDMA. CBC shows a leukocytosis at 19.8. Hemoglobin hematocrit are stable. Platelets are normal. Renal function electrolytes within normal limits. EtOH negative. Rapid strep is pending but patient was given a dose of amoxicillin in the ED. He was also given Decadron 10 mg p.o. and Naprosyn 500 mg p.o. Discussed with hospitalist for admission. Impression: 1. polysubstance abuse 2. Presentation for detox 3. Pharyngitis Lab Data Attestation: I reviewed the patient's lab results. Labs: Laboratory Results - last 24 hr 01/25/23 01/25/23 01/25/23 18:30 18:30 18:30 WBC 19.8 H RBC 5.68 Hgb 16.9 H Hct 49.9 MCV 87.9 MCH 29.8 MCHC 33.9 RDW Std Deviation 40.6 RDW Coeff of Luisito 12.4 Plt Count 298 MPV 10.9 Immature Gran % (Auto) 0.400 Neut % (Auto) 83.0 H Lymph % (Auto) 6.1 L Millard % (Auto) 10.0 Eos % (Auto) 0.2 Baso % (Auto) 0.3 Absolute Neuts (auto) 16.5 H Absolute Lymphs (auto) 1.21 Nucleated RBC % 0 Differential Comment SCANNED Diff Path Review May foll Sodium 134 L Potassium 4.1 Chloride 102 Carbon Dioxide 25.0 Anion Gap 7 BUN 12 Creatinine 1.07 Estim Creat Clear Calc 94.11 Est GFR (MDRD) Af Amer 105 Est GFR (MDRD) Non-Af 87 BUN/Creatinine Ratio 11.2 Glucose 110 H Calcium 9.6 Urine Opiates Screen Urine Methadone Screen Ur Barbiturates Screen Ur Phencyclidine Scrn Ur Amphetamines Screen MDMA (Ecstasy) Screen U Benzodiazepines Scrn Urine Cocaine Screen U Cannabinoids Screen Ur Drug Screen Comment Ethyl Alcohol < 3.0 01/25/23 18:30 WBC RBC Hgb Hct MCV MCH MCHC RDW Std Deviation RDW Coeff of Luisito Plt Count MPV Immature Gran % (Auto) Neut % (Auto) Lymph % (Auto) Millard % (Auto) Eos % (Auto) Baso % (Auto) Absolute Neuts (auto) Absolute Lymphs (auto) Nucleated RBC % Differential Comment Diff Path Review Sodium Potassium Chloride Carbon Dioxide Anion Gap BUN Creatinine Estim Creat Clear Calc Est GFR (MDRD) Af Amer Est GFR (MDRD) Non-Af BUN/Creatinine Ratio Glucose Calcium Urine Opiates Screen POSITIVE H Urine Methadone Screen NEGATIVE Ur Barbiturates Screen NEGATIVE Ur Phencyclidine Scrn NEGATIVE Ur Amphetamines Screen NEGATIVE MDMA (Ecstasy) Screen POSITIVE H U Benzodiazepines Scrn POSITIVE H Urine Cocaine Screen POSITIVE H U Cannabinoids Screen POSITIVE H Ur Drug Screen Comment Ethyl Alcohol Discharge Plan Triage Chief Complaint: Substance Abuse ED Provider: Aryan Gonzalez Dx/Rx/DC Orders Prescriptions: No Action gabapentin 100 mg capsule 800 mg PO TID lorazepam 1 mg tablet 1 mg PO TID Label Comments: Take 1 tablet by mouth single dose Primary Care Provider: ALLAN LARA Referrals: ALLAN LARA [Other]
[2023-01-25 19:24] LABS: Alcohol, Blood (Medical)-Serum < 3.0 mg/dL
[2023-01-25] MEDS: Naproxen 500 MG Tablet PO (19:39)
[2023-01-25] MEDS: dexAMETHasone 10 MG/ML Vial PO.IVFORM (19:39)
[2023-01-25 19:45] VITALS: BP 107/62; PULSE 63; RESP 14; TEMP 36.5; O2SAT 95
--- NOTE | 2023-01-25 19:45 | HP.PCM.HOS_ITS ---
HPI - General General Date of Admission: 01/25/23 Date of Service: 01/25/23 Chief Complaint: Opiate, BZD withdrawal, concurrent sore throat, low grade T. HPI Narrative The patient is a 27 y/o M w/ PMHx: Chronic neuropathy, PTSD/Anxiety, Poly substance abuse (BZD/Klonopin, Fentanyl (snorted) and has been using both daily for at least 1 month), Tobacco use, recently presented 12/11/22 for opiate withdrawal unfortunately signing out AMA ( of the year) who now again re- presents to the [facility] ED on 12/11/22 with ongoing substance abuse of opiates reportedly with acute withdrawal, onset starting on day of presentation with last usage the day prior with ongoing snorted fentanyl usage with nausea, agitation, fatigue, body aches, restless legs in addition to report that he had a significantly sore throat and generally feels unwell and fatigued with an elevated temperature the day prior of 100 with no recent cough or dyspnea prompting eventual ED evaluation with noted oropharyngeal erythema including the tonsils as well as exudate on the tonsils with no evidence of any stridor with strep swab pending upon evaluation patient. He notes he is only taking Rx BZD and is not abusing these medications. Patient is interested in attaining clean status. Work-up in the ED included T97.9, heart rate 86, BP 120/93, respiratory rate 20, 97% on room air, CBC with WC 19.8, hemoglobin 16.9, platelet 298 with left shift, BMP with sodium 134, glucose 119 otherwise not marked appearing, UDS with positive opiate, MDMA, benzodiazepine, cocaine, cannabis, ethyl alcohol less than 3. In the ED patient ministered Decadron 10 mg x 1 as well as naproxen 50 mg p.o. x1. Of note strep swab pending upon requested evaluation of patient. Discussed with ED physician and patient will be administered amoxicillin 500 mg po x 1 pending results. [facility] Medical History Anxiety Benzodiazepine abuse Polysubstance abuse PTSD (post-traumatic stress disorder) Tobacco use Home Medications gabapentin 100 mg capsule 800 mg PO TID nerve pain 09/17/22 [History Last Taken 01/25/23] lorazepam 1 mg tablet 1 mg PO TID anxiety 09/17/22 [History Last Taken 01/24/23] Allergy/AdvReac Type Severity Reaction Status Date / Time iodine Allergy Hives Verified 01/25/23 17:46 codeine AdvReac Vomiting Verified 01/25/23 17:46 Family History Mother Breast cancer Father CAD (coronary artery disease) Myocardial infarction Hypertension Heart disease Surgical History History of surgery on lower extremity Social History (Updated 01/25/23 @ 23:[address] Beverly Shaikh MD) household members: other details: Lives with his family. Smoking Status: Current every day smoker tobacco type: cigarettes Smoking packs per day: 1 Smoking cigarettes per day: 20.0 alcohol intake: never substance use type: heroin and other details: Reports he is taking oral BZD only as Rx and not abusing, has prior. ROS ROS Narrative Admission Review of Systems: CONSTITUTIONAL: No weight loss, + Low grade fever, chills, weakness or fatigue. HEENT: + rhinorrhea/congestion, sore throat, elevated low grade T. Eyes: No visual loss, blurred vision, double vision or yellow sclerae. Ears, Nose, Throat: No hearing loss, sneezing, sore throat. SKIN: No rash or itching, lesions, wounds. CARDIOVASCULAR: + No chest pain, chest pressure or chest discomfort, palpations, edema, orthopnea, syncopal events. RESPIRATORY: No shortness of breath, cough or sputum, wheezing, hemoptysis. GASTROINTESTINAL: + anorexia, nausea without vomiting, abdominal cramping, No diarrhea, melena, BRBPR. GENITOURINARY: No dysuria, frequency, urgency or retention. NEUROLOGICAL: + Chronic neuropathy, restless legs. No headache, dizziness, syncope, paralysis, ataxia, numbness or tingling in the extremities, focal we akness, change in bowel or bladder control, seizure. MUSCULOSKELETAL: + muscle, back pain, joint pain or stiffness. HEMATOLOGIC: No anemia, bleeding or bruising. LYMPHATICS: No enlarged nodes. No history of splenectomy. PSYCHIATRIC: + history of depression or anxiety. ENDOCRINOLOGIC: No reports of sweating, cold or heat intolerance. No polyuria or polydipsia. ALLERGIES: No history of asthma, hives, eczema or rhinitis. Vital Signs Vital Signs Vital Signs: 01/25/23 17:46 Temperature 97.9 F Temperature Source Temporal Pulse Rate 86 Respiratory Rate 20 H Blood Pressure 120/93 H Blood Pressure Mean 102 Pulse Ox 97 Oxygen Delivery Method Room Air Weight Weight: 144 lb Body Mass Index (BMI) 19.5 Physical Exam Narrative Physical Examination: General: Awake, alert, oriented x 3 and cooperative, seated upright in ED bed, restless and anxious, agitated. Skin: Normal color, normal turgor, no icterus, no cyanosis, several thorax and extremity tattoos present. HEENT: AT/NC, EOMI, PERRLA, dry MM, rhinorrhea evident, notable posterior OP erythema and scant exudate/minimal, no carotid bruits or JVD noted. Lungs: Mild diminished, greater bases, moderate effort, occasional end expiratory wheeze, no rales or rhonchi. Heart: Currently regular rate and rhythm; no gallop, rub audible. Abdomen: Soft, mild generalized discomfort with palpation, no marked distention, hyperactive bowel sounds, no obvious HSM. Extremities: No cyanosis, clubbing, or edema. Neurological: Patient awake, alert, oriented as noted, cognitive function intact; pupils equally reactive to light and accommodation, cranial nerves II- XII grossly normal, moving all 4 extremities, no focal deficits, strength mildly to moderately globally decreased secondary to withdrawal symptoms. Psychiatric: Affect appears mildly agitated, anxious, restless, no acute evidence of depressive feelings. Results Lab / Micro Data Result Diagrams: 01/25/23 18:30 01/25/23 18:30 Labs: Laboratory Results - last 24 hr 01/25/23 18:30: WBC 19.8 H, RBC 5.68, Hgb 16.9 H, Hct 49.9, MCV 87.9, MCH 29.8, MCHC 33.9, RDW Std Deviation 40.6, RDW Coeff of Luisito 12.4, Plt Count 298, MPV 10.9, Immature Gran % (Auto) 0.400, Neut % (Auto) 83.0 H, Lymph % (Auto) 6.1 L, [place] % (Auto) 10.0, Eos % (Auto) 0.2, Baso % (Auto) 0.3, Absolute Neuts (auto) 16.5 H, Absolute Lymphs (auto) 1.21, Nucleated RBC % 0, Differential Comment SCANNED, Diff Path Review January01/25/23 18:30: Sodium 134 L, Potassium 4.1, Chloride 102, Carbon Dioxide 25.0, Anion Gap 7, BUN 12, Creatinine 1.07, Estim Creat Clear Calc 94.11, Est GFR (MDRD) Af Amer 105, Est GFR (MDRD) Non-Af 87, BUN/Creatinine Ratio 11.2, Glucose 110 H, Calcium 9.6 01/25/23 18:30: Ethyl Alcohol < 3.0 01/25/23 18:30: Urine Opiates Screen POSITIVE H, Urine Methadone Screen NEGATIVE, Ur Barbiturates Screen NEGATIVE, Ur Phencyclidine Scrn NEGATIVE, Ur Amphetamines Screen NEGATIVE, MDMA (Ecstasy) Screen POSITIVE H, U Leonard odiazepines Scrn POSITIVE H, Urine Cocaine Screen POSITIVE H, U Cannabinoids Screen POSITIVE H, Ur Drug Screen Comment Assessment & Plan Assessment/Plan (1) Opiate withdrawal: PLAN: Plan The patient is a 27 y/o M w/ PMHx: Chronic neuropathy, PTSD/Anxiety, Polysubstance abuse (BZD/Klonopin, Fentanyl (snorted) and has been using both da michaela for at least 1 month), Tobacco use, recently presented 12/11/22 for opiate withdrawal unfortunately signing out AMA ( of the year) who now again re- presents to the [facility] ED on 12/11/22 with ongoing substance abuse of opiates reportedly with acute withdrawal, onset starting on day of presentation with concurrent recent sore throat. #1. Acute Opiate Withdrawal: Will admit to [facility], will initiate protocol with tapering course of Subutex, as needed tylenol, ibuprofen, bowel regimen, gabapentin, Bentyl, Vistaril, methocarbamol, clonidine, PRN nightly trazodone for insomnia, IV fluids, IV antiemetics. Once patient clinically improved and completion of taper nearing will plan consultation with case management for transition to next level of rehabilitation care. #3. Questionable acute pharyngitis with possible streptococcal pharyngitis: Will initiate amoxicillin 500 mg p.o. twice daily for possible streptococcal pharyngitis with rapid strep A TRACI pending upon requested evaluation of patient, de-escalate as able pending results. To be cautious if this is negative given his exam findings would obtain respiratory viral panel and COVID PCR if necessary. #4. Polysubstance Abuse: Recent 12/11/22 unremarkable HIV/hepatitis panel of note. Encourage complete clean status and education administered regarding HIV/Hepatitis risks with substance abuse. #5. Tobacco use: Encourage tobacco cessation, RT consulted for education, NR ordered. #6. Anxiety/PTSD: Will benefit from therapy and counseling and consideration of other agent aside BZD given abuse history; but for now as notes only taking as Rx will continue 1 mg po TID BZD regimen. He has abused these in the past of note but discussed at length and currently denies. #7. Chronic neuropathy: Will continue patient home gabapentin regimen with PRN as noted #1 given presentation. #8. DVT Prophylaxis: Low risk, encourage ambulation. Admission Evaluation Time spent evaluating chart, patient history, patient evaluation, care planning and discussion with specialists: 60 minutes. Charges/Coding Visit Charges Inpatient E&M: 67772 Init Hosp L2
[2023-01-25] MEDS: AMOXICILLIN 500 MG CAPSULE PO ×2 (20:16→22:34)
[2023-01-25 20:41] VITALS: BP 108/60; PULSE 66; RESP 14; TEMP 36.6; O2SAT 97
[2023-01-25 21:09] VITALS: BMI 19.5
[2023-01-25 21:20] VITALS: BP 126/81; PULSE 62; RESP 14; TEMP 36.9; O2SAT 99
[2023-01-25] MEDS: LORazepam 1 MG Tablet PO (21:28)
[2023-01-25] MEDS: Gabapentin 800 MG Tablet PO (21:28)
[2023-01-25] MEDS: cloNIDine HCl 0.1 MG Tablet PO (21:28)
[2023-01-25] MEDS: hydrOXYzine PAM 25 MG Capsule 50 MG PO (21:28)
[2023-01-25] MEDS: Methocarbamol 750 MG Tablet 1500 MG PO (21:28)
[2023-01-25] MEDS: Lactated Ringers 1,000 ML 125 ML IV (22:34)
[2023-01-25] MEDS: Ibuprofen 600 MG Tablet PO (22:34)
[2023-01-25] MEDS: traZODone 100 MG Tablet PO (22:34)
[2023-01-25] MEDS: Buprenorphine HCl 2 MG TAB.SUBL SL (22:34)
[2023-01-25] MEDS: Dicyclomine 10 MG Capsule 20 MG PO (22:35)
[2023-01-26] VITALS (7 sets, daily range): BP systolic 96–115; BP diastolic 53–66; PULSE 52–66; RESP 16–18; TEMP 36.3–36.8; O2SAT 96–100
[2023-01-26] MEDS: hydrOXYzine PAM 25 MG Capsule 50 MG PO (01:48)
[2023-01-26] MEDS: LORazepam 1 MG Tablet PO (05:41)
[2023-01-26] MEDS: Buprenorphine HCl 2 MG TAB.SUBL SL ×3 (05:41→22:58)
[2023-01-26] MEDS: Gabapentin 800 MG Tablet PO ×3 (05:41→22:58)
[2023-01-26] MEDS: Methocarbamol 750 MG Tablet 1500 MG PO ×2 (07:01→14:03)
[2023-01-26] MEDS: Ibuprofen 600 MG Tablet PO (07:01)
[2023-01-26] MEDS: AMOXICILLIN 500 MG CAPSULE PO ×2 (07:42→22:59)
--- NOTE | 2023-01-26 07:49 | PCM.PN.HOSP ---
Reason for Visit Reason for Visit: Opiate detox/benzo detox Subjective Subjective Mr. Lorenzana is a 27-year-old white male who presented to the emergency department at [facility] on 01/25/2023 requesting opiate and benzodiazepine detox. He was here recently on 12/11/2022 for opiate detox however signed out AMA at that time. He states he had ongoing use of both opiates and benzodiazepines which he snorts. Upon presentation his withdrawal symptoms included nausea, agitation, fatigue, body aches, and restless legs. Patient also reported a significant sore throat and felt generally unwell and fatigued. Tmax on the day of presentation was 100 degrees. He had no other respiratory symptoms but oropharyngeal erythema was noted as well as exudates on presentation. Rapid strep was performed and negative. Respiratory viral panel was performed and unremarkable. In the emergency department he was given Decadron, naproxen, and amoxicillin 500 mg x 1 dose. We will go ahead and obtain a throat culture and continue amoxicillin for now until cultures obtained. If cultures negative will discontinue antibiotics. Patient did have significant leukocytosis at 19.5 with a left shift on presentation. His anxiety was out of control. He states that he is prescribed Ativan 1 mg 3 times a day and would like me to transition this from Valium to something more long-acting like Klonopin. I told him that if he wanted to detox from benzodiazepines that would be fine and we could use phenobarbital orally but we would not transition him from benzodiazepine to benzodiazepine while hospitalized. I did review his recent OARRS and it appears that he has had 2 recent benzodiazepine prescriptions with 1 being on 01/18/2023 for Ativan 1 mg 3 times daily and 14 tablets were prescribed at that time. He also had an order for benzodiazepine prescribed from a different nurse practitioner on 517 for Valium and 4 tablets were prescribed at that time. Upon review of his OARRS he has had multiple different prescriptions of controlled substances prescribed by multiple different providers at multiple different locations ranging from [facility] to [facility] to [facility] and multiple pharmacies had been used. I told him that we would not write for any benzodiazepines at discharge and I recommend he detox. He was adamant that he does not want to detox from benzodiazepines and he needs it for his anxiety. We did discuss that a lot of his anxiety is related to his opiate withdrawal. He was argumentative throughout the conversation. He has had 2 AMA discharges on his to last hospitalizations here. I told him we are happy to help him with his detox process however we would not be prescribing any new benzodiazepines. Objective Data Objective Data Vital Signs: Vital Signs Temp Pulse Resp BP Pulse Ox O2 Del Method 98.2 F 52 L 18 106/63 97 Room Air 01/26/23 05:40 01/26/23 05:40 01/26/23 05:40 01/26/23 05:40 01/26/23 05:40 01/26/23 05:40 Oxygen Delivery Method Room Air Weight: 65.2 kg Body Mass Index (BMI) 19.5 Intake & Output: Intake and Output for Last 24 Hours 01/24/23 01/25/23 01/26/23 23:59 23:59 23:59 Intake Total 1999 Balance 1999 Lab / Micro Data Result Diagrams: 01/26/23 09:10 01/25/23 18:30 Labs: Laboratory Results - last 24 hr 01/25/23 18:30: WBC 19.8 H, RBC 5.68, Hgb 16.9 H, Hct 49.9, MCV 87.9, MCH 29.8, MCHC 33.9, RDW Std Deviation 40.6, RDW Coeff of Luisito 12.4, Plt Count 298, MPV 10.9, Immature Gran % (Auto) 0.400, Neut % (Auto) 83.0 H, Lymph % (Auto) 6.1 L, [place] % (Auto) 10.0, Eos % (Auto) 0.2, Baso % (Auto) 0.3, Absolute Neuts (auto) 16.5 H, Absolute Lymphs (auto) 1.21, Nucleated RBC % 0, Differential Comment SCANNED, Diff Path Review January01/25/23 18:30: Sodium 134 L, Potassium 4.1, Chloride 102, Carbon Dioxide 25.0, Anion Gap 7, BUN 12, Creatinine 1.07, Estim Creat Clear Calc 94.11, Est GFR (MDRD) Af Amer 105, Est GFR (MDRD) Non-Af 87, BUN/Creatinine Ratio 11.2, Glucose 110 H, Calcium 9.6 01/25/23 18:30: Ethyl Alcohol < 3.0 01/25/23 18:30: Urine Opiates Screen POSITIVE H, Urine Methadone Screen NEGATIVE, Ur Barbiturates Screen NEGATIVE, Ur Phencyclidine Scrn NEGATIVE, Ur Amphetamines Screen NEGATIVE, MDMA (Ecstasy) Screen POSITIVE H, U Benzodiazepines Scrn POSITIVE H, Urine Cocaine Screen POSITIVE H, U Cannabinoids Screen POSITIVE H, Ur Drug Screen Comment 01/25/23 21:50: COVID-19 (DENISE) Not Detected Micro: Microbiology 01/25/23 21:50 Mucosa - Nasopharyngeal Respiratory Panel (PCR) - Final 01/25/23 19:45 Interface Orders Group A Streptococcus Rapid Screen - Preliminary Physical Exam Const alert, oriented x3, no apparent distress and well nourished Constitutional Narrative: Calm appearing, young, white male, sitting up in bed, watching television, appears comfortable and nontoxic however complaining of severe anxiety HEENT head/scalp atraumatic and moist oral mucous membranes Head and Scalp: normocephalic Resp normal respiratory effort, no retractions, no use of accessory muscles and clear to auscultation bilaterally Cardio regular rate, regular rhythm, S1 normal heart sound, S2 normal heart sound, no murmurs, no rub, no gallops and no clicks GI normal to inspection, nondistended, normoactive bowel sounds and soft to palpation Extremity no clubbing, cyanosis or edema Neuro oriented x3, moves all extremities and no focal motor deficits Psych Psych Narrative: Agitated and somewhat argumentative Assessment & Plan Assessment/Plan (1) Opiate withdrawal: (2) Pharyngitis: (3) Leukocytosis: (4) Benzodiazepine abuse: PLAN: Plan Opiate abuse/acute opiate withdrawal -Continue Subutex taper as ordered -Supportive medications as ordered -Addiction medicine following Benzodiazepine abuse -Patient denies addiction to this and states they are prescribed -OARRS reviewed--> last Ativan prescription was on 01/18 for 14 tablets by prescriber in [facility] -Patient also had a Valium order by a different nurse practitioner in [facility] for 4 tablets on 01/21/2023 -Has multiple prescriptions of benzodiazepines of varying types from multiple different providers in multiple different locations and these have billed and filled at multiple different pharmacies -I did offer detox from benzodiazepine however patient is refusing--> we discussed utilization of phenobarbital and he indicated he only use it if his IV -Told him we could taper oral phenobarbital he would like to and he refused treatment -We will decrease his Ativan from 1 mg 3 times daily to 1 mg twice daily with slow taper as I am unclear how much benzodiazepine he is using on a regular basis -I suspect he uses off the street as well based on conversation Leukocytosis -Trending down -Repeat CBC in a.m. Pharyngitis -Rapid strep was negative -Check culture -If culture negative will discontinue antibiotics -No complaints with regards to this today Polysubstance abuse -See above -Patient with recent hepatitis panel and HIV being negative Tobacco abuse -Nicotine replacement available -Recommend cessation Neuropathy -Continue home gabapentin Anxiety/PTSD -Patient needs outpatient follow-up with counseling -Avoid treatment with addictive substances -Start BuSpar 5 mg twice daily DVT prophylaxis -Low risk -Encourage ambulation CODE STATUS Full code Charges/Coding Visit Charges Inpatient E&M: 01180 Subs Hosp L2
[2023-01-26 09:22] LABS: Absolute Lymphocyte Count 1.67 X10^3/uL (0.83-4.51); Absolute Neutrophil Count 10.2 X10^3/uL (2.0-7.7); Basophil# 0.02 X10^3/uL; Basophil% 0.1 % (0-1); Eosinophil# 0.02 X10^3/uL; Eosinophils% 0.1 % (0-5); Hematocrit 45.4 % (40-54); Hemoglobin 15.3 g/dL (13.0-16.5); Lymphocyte # 1.67 X10^3/ul (0.83-4.51); Lymphocyte % 12.4 % (19-41); Mean Corp Hgb Conc 33.7 g/dL (32-36); Mean Corpuscular Hgb 29.9 pg (27.0-32.0); Mean Corpuscular Volume 88.7 fL (80-94); Mean Platelet Vol. 10.5 fl (6.2-12.0); Monocyte# 1.49 X10^3/uL; Monocyte% 11.1 % (0-10); NRBC Flagged by Analyzer 0 % (0-5); Neutrophil % 75.9 % (47-70); Platelet Count 315 K/mm3 (150-450); RBC Distribution Width CV 12.1 % (11.6-14.6); RBC Distribution Width SD 39.6 fl (35.1-43.9); Red Blood Count 5.12 M/mm3 (4.6-6.2); White Blood Count 13.5 K/mm3 (4.4-11.0)
[2023-01-26 09:49] LABS: Pathologist Review Reviewed
[2023-01-26] MEDS: 0.9% Saline Lock 10 ML Syringe IV (10:29)
[2023-01-26] MEDS: Ketorolac 30 MG/ML Syringe IV (10:29)
[2023-01-26] MEDS: cloNIDine HCl 0.1 MG Tablet PO (14:03)
[2023-01-26] MEDS: Phenobarbital 32.4 MG Tablet 97.2 MG PO ×3 (14:34→22:58)
[2023-01-26] MEDS: traZODone 100 MG Tablet PO (22:58)
[2023-01-26] MEDS: busPIRone 5 MG Tablet PO (22:59)
--- NOTE | 2023-01-27 02:43 | NURSING ---
pt refusing to take phenobarb or any other prns for his anxiety and leg aches. pt states he is only going to take ativan and iv pain meds. offered options that are ordered and pt refuses. charge master coordinator came in room to talk to pt but pt continues to refuse ordered meds. pt wants his dad and/or stepmom called to keep his car and states that is ok to call now.
--- NOTE | 2023-01-27 02:51 | NURSING ---
message left for dad/stepmom to keep pt car in am no one answered
[2023-01-27] MEDS: cloNIDine HCl 0.1 MG Tablet PO (03:15)
[2023-01-27] MEDS: Phenobarbital 32.4 MG Tablet 97.2 MG PO ×3 (03:15→10:06)
[2023-01-27] MEDS: hydrOXYzine PAM 25 MG Capsule 50 MG PO (03:15)
[2023-01-27] MEDS: Methocarbamol 750 MG Tablet 1500 MG PO (03:15)
[2023-01-27] MEDS: Ibuprofen 600 MG Tablet PO (03:15)
--- NOTE | 2023-01-27 03:19 | NURSING ---
pt called out and stated he wanted his meds when rn went into room pt had placed himself on the floor and was resting his head on his hands, pt offered his meds or if he did not want them he could get back in bed or if he did not wish to participate in ramp program he did not have to stay. staff could see pt on the camera and when this rn left room pt got up and got back into bed. a few minutes passed and pt called again for meds, security called to accompany rn to pt room along with special agent in charge. again offered pt his meds versus asked him if he wished to leave program, pt took his meds. updated pt that frandy left with his family regarding his car. nursing shellfish farming supervisor notified
[2023-01-27 06:09] LABS: Absolute Lymphocyte Count 3.31 X10^3/uL (0.83-4.51); Absolute Neutrophil Count 4.1 X10^3/uL (2.0-7.7); Basophil# 0.09 X10^3/uL; Eosinophil# 0.37 X10^3/uL; Eosinophils% 4.1 % (0-5); Hematocrit 42.1 % (40-54); Hemoglobin 14.2 g/dL (13.0-16.5); Lymphocyte # 3.31 X10^3/ul (0.83-4.51); Lymphocyte % 37.1 % (19-41); Mean Corp Hgb Conc 33.7 g/dL (32-36); Mean Corpuscular Hgb 30.3 pg (27.0-32.0); Mean Corpuscular Volume 89.8 fL (80-94); Mean Platelet Vol. 10.6 fl (6.2-12.0); Monocyte# 1.05 X10^3/uL; Monocyte% 11.8 % (0-10); NRBC Flagged by Analyzer 0 % (0-5); Neutrophil # 4.07 X10^3/uL (2.7-7.7); Neutrophil % 45.6 % (47-70); Platelet Count 301 K/mm3 (150-450); RBC Distribution Width CV 12.3 % (11.6-14.6); RBC Distribution Width SD 40.6 fl (35.1-43.9); Red Blood Count 4.69 M/mm3 (4.6-6.2); White Blood Count 8.9 K/mm3 (4.4-11.0)
[2023-01-27] MEDS: Gabapentin 800 MG Tablet PO (06:39)
[2023-01-27] MEDS: Buprenorphine HCl 2 MG TAB.SUBL SL (06:40)
[2023-01-27 06:44] VITALS: BP 97/56; PULSE 55; RESP 16; TEMP 36.1; O2SAT 97
[2023-01-27 07:45] VITALS: O2SAT 96
[2023-01-27] MEDS: busPIRone 5 MG Tablet PO (07:53)
[2023-01-27] MEDS: AMOXICILLIN 500 MG CAPSULE PO (07:53)
[2023-01-27 08:11] VITALS: BP 93/53; PULSE 51; RESP 16; TEMP 36.5; O2SAT 97
--- NOTE | 2023-01-27 13:30 | NURSING ---
pt leaving [facility]. pt signed papers.
--- NOTE | 2023-01-27 13:33 | NURSING ---
security called informed pt leaving [facility], requesting they ensure patient safety exits facility.
--- NOTE | 2023-01-27 13:45 | PCM.HOSP.N ---
Hospitalist Note Patient was admitted on 01/25/2023 for opiate detox. Patient reported that he was on chronic benzodiazepines and per documentation has a history of benzodiazepine abuse. He reported to the admitting physician he was prescribed benzodiazepines 1 mg 3 times daily. I reviewed his OARRS and he had been prescribed that for a very short period of time on 01/18/2023. He also was prescribed Valium from a different prescriber on 01/21/2023. Again he should not have any more benzodiazepines at home if he took them as directed for abuse them. He was admitted the medical floor and initially placed on Subutex. We addressed his benzodiazepine abuse with him and he was somewhat excepting of phenobarbital however very argumentative and abusive to staff throughout his hospital stay. He threw himself to the ground overnight between 522 and 523 and told him he had a seizure and they watched him on the monitor get right back up and get in the bed independently. The patient was very manipulative throughout his hospital stay. He was seen by addiction and they offered him discharged to a inpatient rehab facility that could continue his detox and he kicked the [facility] liaison out of the room refusing to talk to her. He elected to leave AGAINST MEDICAL ADVICE on 01/27/2023. He should not be readmitted for opiate detox per discussion with [facility]. He is not from this area and has had 5 or 6 AMA discharges from this hospital. He has not completed the program once since coming to this facility. We would admit him for benzodiazepine or alcohol withdrawal.
== END 2023-01-27 13:33 | disposition left against medical advice (07) | DRG 770 ==
LOC: ED 18:18 → MS3 20:28
PROVIDERS: Admitting Provider Family Medicine; Emergency Provider Student in an Organized Health Care Education/Training Program; Visit Provider Internal Medicine
DX: F11.23 Opioid dependence with withdrawal (principal); F17.210 Nicotine dependence, cigarettes, uncomplicated; G62.9 Polyneuropathy, unspecified; F41.9 Anxiety disorder, unspecified; J02.9 Acute pharyngitis, unspecified; F43.10 Post-traumatic stress disorder, unspecified; Z79.899 Other long term (current) drug therapy; Z53.29 Procedure and treatment not carried out because of patient's decision for other reasons
CPT/HCPCS: 36415; 80048; 80307; 82077; 85025; 87070; 87077; 87633; 87635; 87880; 99285; J7120; A4216; U0005